=== PATIENT | female | born 1945 | race Caucasian/White ===

== ENCOUNTER 2017-12-31 12:55 | Emergency (ER) | payer MEDICARE, OTHER, SELFPAY ==
[2017-12-31 13:10] VITALS: BP 132/76; PULSE 69; RESP 16; TEMP 36.8; O2SAT 95
[2017-12-31 13:27] LABS: Bilirubin Negative (Negative); Blood Large (Negative); Clarity Cloudy; Glucose Negative (Negative); Ketones Negative (Negative); Leukocyte Esterase Trace (Negative); Nitrite Negative (Negative); Specific Gravity 1.025 (1.005-1.025); Urobilinogen 0.2 EU/dL (Up TO 0.2); pH 5.5 (5-8)
[2017-12-31 13:36] LABS: C & S Indicated? Yes; RBC >50 (0-2)
--- NOTE | 2017-12-31 14:16 | W.ED.GENAD ---
Discharge Plan Disposition Patient Disposition: HOME Condition: Fair Discharge Details Chief Complaint: Urinary Clinical Impression: UTI (urinary tract infection) Reason For Visit: blood in urine Primary Care Provider: Yusra Adhikari ED Provider: Shell Bran Home Meds and New Rx's Prescriptions: New cephalexin [Keflex] 500 mg capsule 500 mg PO BID Qty: 10 RF: 0 Continue omeprazole 40 MG capsule,delayed release(DR/EC) 40 mg PO DAILY Qty: 90 RF: 3 cholecalciferol (vitamin D3) 2,000 UNIT tablet 2,000 unit PO BID RF: 0 ranitidine HCl 300 MG tablet 300 mg PO HS PRN Qty: 90 RF: 3 acetaminophen [Acetaminophen Extra Strength] 500 MG tablet 500 mg PO PRN PRNRF: 0 Discharge Instructions Instructions: Urinary Tract Infection in Women (ED) Additional Instructions: Please encourage hydration. Take antibiotics as prescribed. Even if symptoms improve please take the entire course. Please follow-up with primary care this week for reevaluation. If you develop flank pain, abdominal pain, nausea/vomiting, change in bowel habits, fever/chills or other new/worsening symptoms please seek care urgently once again. Referrals: Yusra Adhikari MD [Primary Care Provider] - Discharge Data Discharge Date/Time-TO BE ENTERED AT DEPARTURE: 12/31/17 17:01 Medical Decision Making MDM Narrative Medical decision making narrative: Patient presents today with chief complaint hematuria, dysuria and increased frequency. She reports that when she has had a UTI in the past she has had associated hematuria. She has no CVA tenderness. No abdominal pain on exam. Patient appears nontoxic is afebrile. Reviewed findings of urinalysis which does suggest urinary tract infections particularly in the settings of the patient's symptoms. Patient will be treated for urinary tract infection. Advised close follow-up with primary care. Encourage hydration. Patient reports that she does not drink much water throughout the course of the day. She was given strict return precautions. All of her questions and concerns were addressed and she is in agreement with this plan. Lab Data Lab Results 12/31/17 Range/Units 13:24 Urine Color Brown (Yellow) Urine Clarity Cloudy Urine pH 5.5 (5-8) Ur Specific [place] 1.025 (1.005-1.025) Urine Protein 100 H (Negative) mg/dL Urine Ketones Negative (Negative) mg/dL Urine Blood Large H (Negative) Urine Nitrite Negative (Negative) Urine Bilirubin Negative (Negative) Urine Urobilinogen 0.2 (Up TO 0.2) EU/dL Ur Leukocyte Esterase Trace H (Negative) Urine RBC >50 H (0-2) Urine WBC Not Applicable Ur Epithelial Cells Not Applicable Urine Crystals Not Applicable Urine Bacteria Not Applicable Urine Mucus Not Applicable Ur Culture Indicated? Yes Urine Glucose Negative (Negative) mg/dL HPI - General Adult General Mode of arrival: ambulatory. Date/Time Provider Initiated Documentation: 12/31/17 14:01. Limitations to Documentation: no limitations. Information obtained by: patient and family. HPI Narrative: Patient is a 72-year-old female, accompanied by her , chief complaint of hematuria, dysuria and increased frequency. Patient reports his symptoms began this morning. She reports she has had urinary tract infections historically that has been several years since her last. She denies any fevers or chills. No flank pain. Patient has history of common bile duct cancer. Had partial resection of liver. Patient did undergo a repair 2 months ago at [facility]. Is concerned that her hematuria and recent surgery may be linked. She denies any abdominal pain. No fevers or chills. Denies any flank pain. Denies any abdominal pain. Has not noted any vaginal discharge. No change in bowel habits Related Data Home Medications Medication Instructions Recorded Confirmed acetaminophen [Acetaminophen Extra 500 mg PO PRN PRN 04/18/16 02/22/17 Strength] cholecalciferol (vitamin D3) 2,000 unit PO BID 06/08/17 Previous Rx's Medication Instructions Recorded cephalexin [Keflex] 500 mg PO BID #10 cap 12/31/17 Allergies Allergy/AdvReac Type Severity Reaction Status Date / Time No Known Allergies Allergy Unverified 09/05/17 11:08 General Stated Complaint: Urinary FALLON: 4 Review of Systems Constitutional Reports as per HPI, Denies chills and Denies fever(s) Cardiovascular Denies chest pain, Denies dyspnea and Denies dyspnea on exertion Respiratory Denies cough, Denies dyspnea and Denies dyspnea on exertion Gastrointestinal Reports as per HPI and Denies change in bowel habits Genitourinary Reports as per HPI Musculoskeletal Denies back pain Integumentary/Breasts Denies rash [facility] Family History Mother Personal history of malignant neoplasm Father Diabetes Heart disease Sister Personal history of malignant neoplasm Sister Personal history of malignant neoplasm Sister No problems noted. Sister No problems noted. Sister No problems noted. Brother Diabetes Heart disease Brother No problems noted. Brother No problems noted. Grandfather Personal history of malignant neoplasm Grandfather No problems noted. Grandmother No problems noted. Grandmother Personal history of malignant neoplasm Son No problems noted. Son No problems noted. Social History Smoking/Tobacco Use Status: Never Surgical History Abdominal hysterectomy Open Carpal Tunnel release Repair of inguinal hernia (02/22/17) Replacement of total knee joint VEIN STRIPPING liver resection (05/06/16) Exam Const General: cooperative, healthy appearing, comfortable and no acute distress Nutritional Appearance: average body habitus Orientation: alert Resp Effort & Inspection: normal respiratory effort, able to speak in complete sentences and no respiratory distress Auscultation: clear to auscultation bilaterally Cardio Rate: regular rate Rhythm: regular rhythm Heart Sounds: S1 normal and S2 normal GI Inspection: normal to inspection, no abdominal wall ecchymosis and non-distended Palpation: soft, no hepatosplenomegaly, not firm, no guarding, not rigid and nontender Auscultation: normal bowel sounds Back/Spine/Pelvis Back: no CVA tenderness Skin General skin exam: no rashes or lesions noted Neuro General: alert and awake Cognition: normal cognition Speech: speech normal Gait: normal gait Psych Appearance: grossly normal Mental Status: mental status grossly normal Speech and Movement: speech and movement normal Mood: congruent mood Affect: normal affect Attitude: cooperative Course Vital Signs Temperature 36.8 C 12/31/17 13:10 Pulse 69 12/31/17 13:10 Respiratory Rate 16 12/31/17 13:10 Blood Pressure 132/76 12/31/17 13:10 Pulse Oximetry 95 12/31/17 13:10 Temperature 36.8 C 12/31/17 13:10 Pulse 69 12/31/17 13:10 Respiratory Rate 16 12/31/17 13:10 Blood Pressure 132/76 12/31/17 13:10 Pulse Oximetry 95 12/31/17 13:10 Lab/Test Results Lab/Test Results: Laboratory Tests 12/31/17 13:24 Urine Color Brown Urine Clarity Cloudy Urine pH 5.5 Ur Specific [place] 1.025 Urine Protein 100 H Urine Ketones Negative Urine Blood Large H Urine Nitrite Negative Urine Bilirubin Negative Urine Urobilinogen 0.2 Ur Leukocyte Esterase Trace H Urine RBC >50 H Urine WBC Not Applicable Ur Epithelial Cells Not Applicable Urine Crystals Not Applicable Urine Bacteria Not Applicable Urine Mucus Not Applicable Ur Culture Indicated? Yes Urine Glucose Negative
--- NOTE | 2017-12-31 14:19 | ED.GENADUL_ITS ---
Discharge Plan Disposition Patient Disposition: HOME Condition: Fair Discharge Details Chief Complaint: Urinary Clinical Impression: UTI (urinary tract infection) Reason For Visit: blood in urine Primary Care Provider: Yusra Adhikari ED Provider: Shell Bran Home Meds and New Rx's Prescriptions: New cephalexin [Keflex] 500 mg capsule 500 mg PO BID Qty: 10 RF: 0 Continue omeprazole 40 MG capsule,delayed release(DR/EC) 40 mg PO DAILY Qty: 90 RF: 3 cholecalciferol (vitamin D3) 2,000 UNIT tablet 2,000 unit PO BID RF: 0 ranitidine HCl 300 MG tablet 300 mg PO HS PRN Qty: 90 RF: 3 acetaminophen [Acetaminophen Extra Strength] 500 MG tablet 500 mg PO PRN PRNRF: 0 Discharge Instructions Instructions: Urinary Tract Infection in Women (ED) Additional Instructions: Please encourage hydration. Take antibiotics as prescribed. Even if symptoms improve please take the entire course. Please follow-up with primary care this week for reevaluation. If you develop flank pain, abdominal pain, nausea/ vomiting, change in bowel habits, fever/chills or other new/worsening symptoms please seek care urgently once again. Referrals: Yusra Adhikari MD [Primary Care Provider] - Discharge Data Discharge Date/Time-TO BE ENTERED AT DEPARTURE: 12/31/17 17:01 Medical Decision Making MDM Narrative Medical decision making narrative: Patient presents today with chief complaint hematuria, dysuria and increased frequency. She reports that when she has had a UTI in the past she has had associated hematuria. She has no CVA tenderness. No abdominal pain on exam. Patient appears nontoxic is afebrile. Reviewed findings of urinalysis which does suggest urinary tract infections particularly in the settings of the patient's symptoms. Patient will be treated for urinary tract infection. Advised close follow-up with primary care. Encourage hydration. Patient reports that she does not drink much water throughout the course of the day. She was given strict return precautions. All of her questions and concerns were addressed and she is in agreement with this plan. Lab Data Lab Results 12/31/17 Range/Units 13:24 Urine Color Brown (Yellow) Urine Clarity Cloudy Urine pH 5.5 (5-8) Ur Specific [place] 1.025 (1.005-1.025) Urine Protein 100 H (Negative) mg/dL Urine Ketones Negative (Negative) mg/dL Urine Blood Large H (Negative) Urine Nitrite Negative (Negative) Urine Bilirubin Negative (Negative) Urine Urobilinogen 0.2 (Up TO 0.2) EU/dL Ur Leukocyte Esterase Trace H (Negative) Urine RBC >50 H (0-2) Urine WBC Not Applicable Ur Epithelial Cells Not Applicable Urine Crystals Not Applicable Urine Bacteria Not Applicable Urine Mucus Not Applicable Ur Culture Indicated? Yes Urine Glucose Negative (Negative) mg/dL HPI - General Adult General Mode of arrival: ambulatory . Date/Time Provider Initiated Documentation: 12/31/17 14:01 . Limitations to Documentation: no limitations . Information obtained by: patient and family . HPI Narrative: Patient is a 72-year-old female, accompanied by her , chief complaint of hematuria, dysuria and increased frequency. Patient reports his symptoms began this morning. She reports she has had urinary tract infections historically that has been several years since her last. She denies any fevers or chills. No flank pain. Patient has history of common bile duct cancer. Had partial resection of liver. Patient did undergo a repair 2 months ago at [facility]. Is concerned that her hematuria and recent surgery may be linked. She denies any abdominal pain. No fevers or chills. Denies any flank pain. Denies any abdominal pain. Has not noted any vaginal discharge. No change in bowel habits Related Data Home Medications Medication Instructions Recorded Confirmed acetaminophen [Acetaminophen Extra 500 mg PO PRN PRN 04/18/16 02/22/17 Strength] cholecalciferol (vitamin D3) 2,000 unit PO BID 06/08/17 Previous Rx's Medication Instructions Recorded cephalexin [Keflex] 500 mg PO BID #10 cap 12/31/17 Allergies Allergy/AdvReac Type Severity Reaction Status Date / Time No Known Allergies Allergy Unverified 09/05/17 11:08 General Stated Complaint: Urinary [place]ALL[place]: 4 Review of Systems Constitutional Reports as per HPI, Denies chills and Denies fever(s) Cardiovascular Denies chest pain, Denies dyspnea and Denies dyspnea on exertion Respiratory Denies cough, Denies dyspnea and Denies dyspnea on exertion Gastrointestinal Reports as per HPI and Denies change in bowel habits Genitourinary Reports as per HPI Musculoskeletal Denies back pain Integumentary/Breasts Denies rash [facility] Family History Mother Personal history of malignant neoplasm Father Diabetes Heart disease Sister Personal history of malignant neoplasm Sister Personal history of malignant neoplasm Sister No problems noted. Sister No problems noted. Sister No problems noted. Brother Diabetes Heart disease Brother No problems noted. Brother No problems noted. Grandfather Personal history of malignant neoplasm Grandfather No problems noted. Grandmother No problems noted. Grandmother Personal history of malignant neoplasm Son No problems noted. Son No problems noted. Social History Smoking/Tobacco Use Status: Never Surgical History Abdominal hysterectomy Open Carpal Tunnel release Repair of inguinal hernia (02/22/17) Replacement of total knee joint VEIN STRIPPING liver resection (05/06/16) Exam Const General: cooperative, healthy appearing, comfortable and no acute distress Nutritional Appearance: average body habitus Orientation: alert Resp Effort & Inspection: normal respiratory effort, able to speak in complete sentences and no respiratory distress Auscultation: clear to auscultation bilaterally Cardio Rate: regular rate Rhythm: regular rhythm Heart Sounds: S1 normal and S2 normal GI Inspection: normal to inspection, no abdominal wall ecchymosis and non-distended Palpation: soft, no hepatosplenomegaly, not firm, no guarding, not rigid and nontender Auscultation: normal bowel sounds Back/Spine/Pelvis Back: no CVA tenderness Skin General skin exam: no rashes or lesions noted Neuro General: alert and awake Cognition: normal cognition Speech: speech normal Gait: normal gait Psych Appearance: grossly normal Mental Status: mental status grossly normal Speech and Movement: speech and movement normal Mood: congruent mood Affect: normal affect Attitude: cooperative Course Vital Signs Temperature 36.8 C 12/31/17 13:10 Pulse 69 12/31/17 13:10 Respiratory Rate 16 12/31/17 13:10 Blood Pressure 132/76 12/31/17 13:10 Pulse Oximetry 95 12/31/17 13:10 Temperature 36.8 C 12/31/17 13:10 Pulse 69 12/31/17 13:10 Respiratory Rate 16 12/31/17 13:10 Blood Pressure 132/76 12/31/17 13:10 Pulse Oximetry 95 12/31/17 13:10 Lab/Test Results Lab/Test Results: Laboratory Tests 12/31/17 13:24 Urine Color Brown Urine Clarity Cloudy Urine pH 5.5 Ur Specific [place] 1.025 Urine Protein 100 H Urine Ketones Negative Urine Blood Large H Urine Nitrite Negative Urine Bilirubin Negative Urine Urobilinogen 0.2 Ur Leukocyte Esterase Trace H Urine RBC >50 H Urine WBC Not Applicable Ur Epithelial Cells Not Applicable Urine Crystals Not Applicable Urine Bacteria Not Applicable Urine Mucus Not Applicable Ur Culture Indicated? Yes Urine Glucose Negative
== END 2017-12-31 17:01 | disposition home or self-care (01) ==
PROVIDERS: Emergency Provider Physician Assistant; PCP Family Medicine
DX: N39.0 Urinary tract infection, site not specified (principal); B96.20 Unspecified Escherichia coli [E. coli] as the cause of diseases classified elsewhere
CPT/HCPCS: 87077; 99283; 81003; 81015; 87086; 87186

== ENCOUNTER → 2018-01-02 14:14 | Outpatient (BNVA) | payer MEDICARE, OTHER, SELFPAY | PROVIDERS: PCP Family Medicine; Visit Provider Orthopaedic Surgery | DX: M17.11 Unilateral primary osteoarthritis, right knee (principal); M17.12 Unilateral primary osteoarthritis, left knee | CPT/HCPCS: 20610; 99213; J1040 ==

== ENCOUNTER 2018-01-09 00:21 | Outpatient (CLI) | payer MEDICARE, OTHER, SELFPAY ==
[2018-01-09 09:33] LABS: Abs Immature Grans 0.08 k/cumm (0.0-0.09); Absolute Eosinophil Count 0.11 k/cumm (0.0-0.7); Absolute Monocyte Count 1.42 k/cumm (0.11-0.7); Absolute Neutrophil Count 12.66 k/cumm (1.2-6.7); Basophils % 0.2; Eosinophils % 0.7; HCT 41.7 % (36.0-46.0); HGB 13.7 g/dL (12.0-15.5); Immature Grans % 0.5; Lymphocytes % 12.2; Mean Corp. HGB Concentration 32.9 g/dL (32.0-36.0); Mean Corpuscular Hemoglobin 27.2 pg (27.0-33.0); Mean Corpuscular Volume 82.9 fL (80-95); Mean Platelet Volume 11.3 fL (8.0-11.0); Monocytes % 8.7; Neutrophils % 77.7; Platelet Count 257 x1000/uL (130-400); RBC 5.03 m/cumm (4.00-5.20); RBC Distribution Width 14.9 % (11.7-14.6); White Blood Cell Count 16.29 k/cumm (4.4-10.8)
[2018-01-09 09:34] LABS: Absolute Basophil Count 0.03 k/cumm (0.0-0.2); Absolute Lymphocyte Count 1.99 k/cumm (1.2-3.4)
[2018-01-09] MEDS: Breeza Beverage 473 ML BTL PO ×2 (09:34→09:35)
[2018-01-09] MEDS: Omnipaque 350 MG/ML 50 ML BTL PO (09:35)
[2018-01-09 09:48] LABS: ALT 22 U/L (12-78); AST 24 U/L (15-37); Albumin 3.6 g/dL (3.4-5.0); Alkaline Phosphatase 86 U/L (46-116); Anion Gap 7.4 mmol/L (3-11); BUN 13 mg/dL (7-18); Bilirubin, Total 0.4 mg/dL (0.2-1.0); CO2 29.6 mmol/L (21.0-32.0); CREATININE 0.63 mg/dL (0.55-1.02); Calcium 8.6 mg/dL (8.5-10.1); Chloride 103 mmol/L (98-107); Glucose 89 mg/dL (70-100); Potassium 4.4 mmol/L (3.5-5.1); Sodium 140 mmol/L (136-145); Total Protein 7.9 g/dL (6.4-8.2)
--- NOTE | 2018-01-09 10:52 | DI.CT_ITS ---
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 Routine examination was performed. CT ABDOMEN AND PELVIS: There is a large hiatal hernia. There are again seen several hepatic cysts. No suspicious hepatic masses are seen. The portal and superior mesenteric veins are patent. There are postsurgical changes in the right upper quadrant. The patient is status post cholecystectomy. No biliary ductal dilatation is present. The pancreas, spleen and adrenal glands are unremarkable. The kidneys show normal and symmetric enhancement. No suspicious sold renal masses are present. Hepatic cysts are seen. The urinary bladder is intact. The patient appears to be status post hysterectomy. There is diverticulosis of the colon but no evidence of acute diverticulitis. There is a moderate amount of retained stool throughout the colon. No evidence of bowel obstruction is seen. No findings to suggest an acute appendicitis. The abdominal aorta is of normal caliber with mild atherosclerosis. No abdominal or pelvic adenopathy or ascites is present. The mass seen in the left inguinal region is unchanged in size. The mass deep to the left rectus abdominis muscle is unchanged in size compared to the prior examination also. Degenerative changes are seen in the lumbar spine. No suspicious lytic or sclerotic lesions are appreciated. There appears to have been repair of the patient's prior anterior abdominal wall hernia. IMPRESSION: 1. Stable soft tissue masses, one in the left inguinal region and one deep to the left rectus abdominis muscle. 2. Status post anterior abdominal wall hernia repair. 3. Otherwise stable appearance of the abdomen and pelvis. CT SCAN OF THE CHEST: The thoracic aorta is of normal caliber. The heart size is stable. No significant pericardial effusion is seen. No significant thoracic adenopathy is present. There are several masses again seen in the thyroid gland, the largest is seen on the left and measures 2.1 cm in maximum diameter. No pleural effusion or pneumothorax is identified. There is scarring in both upper lobes medially. No noncalcified pulmonary nodules are identified. No consolidating infiltrates are seen. The tracheobronchial tree is unremarkable. Degenerative changes are present in the spine. There is a large hiatal hernia present. IMPRESSION: No evidence of thoracic metastatic disease.
[2018-01-09] MEDS: Omnipaque 350 MG/ML 100 ML BTL IJ (10:54)
[2018-01-11 10:10] LABS: CA 19-9 10 U/mL (<35)
== END 2018-01-09 00:41 ==
PROVIDERS: PCP Family Medicine; Visit Provider Nurse Practitioner Adult Health
DX: C22.1 Intrahepatic bile duct carcinoma (principal); K44.9 Diaphragmatic hernia without obstruction or gangrene; Z12.89 Encounter for screening for malignant neoplasm of other sites; Z90.49 Acquired absence of other specified parts of digestive tract; Z98.890 Other specified postprocedural states
CPT/HCPCS: 36415; 74177; 80053; 71260; 85025; 86301; J3490; Q9967

== ENCOUNTER 2018-01-10 08:50 | Outpatient (CLI) | payer MEDICARE, OTHER, SELFPAY ==
[2018-01-10 12:53] LABS: Bilirubin Negative (Negative); Blood Moderate (Negative); Clarity Clear; Glucose Negative (Negative); Ketones Negative (Negative); Leukocyte Esterase Small (Negative); Nitrite Negative (Negative); Specific Gravity <= 1.005 (1.005-1.025); Urobilinogen 0.2 EU/dL (Up TO 0.2); pH 6.5 (5-8)
[2018-01-10 13:09] LABS: Bacteria Few HPF (Negative); Casts Negative LPF (Negative); Crystals Negative HPF (Negative); Epithelial Cells Few HPF (Negative); Mucus Negative (Negative); Other Cells Few Renal (Negative); RBC 0-2 (0-2); WBC 20-50 HPF (0-5)
[2018-01-10 13:10] LABS: C & S Indicated? Yes
== END 2018-01-10 09:10 ==
PROVIDERS: PCP Family Medicine; Visit Provider Family Medicine
DX: R31.9 Hematuria, unspecified (principal)
CPT/HCPCS: 81003; 81015; 87086

== ENCOUNTER 2018-01-23 10:12 | Outpatient (CLI) | payer MEDICARE, OTHER, SELFPAY ==
[2018-01-23 11:40] LABS: Bilirubin Negative (Negative); Blood Negative (Negative); Clarity Clear; Glucose Negative (Negative); Ketones Negative (Negative); Leukocyte Esterase Negative (Negative); Nitrite Negative (Negative); Urobilinogen 0.2 EU/dL (Up TO 0.2)
== END 2018-01-23 10:32 ==
PROVIDERS: PCP Family Medicine; Visit Provider Family Medicine
DX: R31.9 Hematuria, unspecified (principal)
CPT/HCPCS: 81003

== ENCOUNTER 2018-02-02 14:06 | Outpatient (CLI) | payer MEDICARE, OTHER, SELFPAY ==
[2018-02-02 14:24] LABS: Bilirubin Negative (Negative); Blood Negative (Negative); Clarity Clear; Glucose Negative (Negative); Ketones Negative (Negative); Leukocyte Esterase Negative (Negative); Nitrite Negative (Negative); Specific Gravity 1.015 (1.005-1.025); Urobilinogen 0.2 EU/dL (Up TO 0.2); pH 6.5 (5-8)
== END 2018-02-02 14:26 ==
PROVIDERS: PCP Family Medicine; Visit Provider Family Medicine
DX: R31.9 Hematuria, unspecified (principal)
CPT/HCPCS: 81003

== ENCOUNTER → 2018-04-03 12:50 | Outpatient (BNVA) | payer MEDICARE, OTHER, SELFPAY | PROVIDERS: PCP Family Medicine; Referring Provider Family Medicine; Visit Provider Orthopaedic Surgery | DX: M17.0 Bilateral primary osteoarthritis of knee (principal) | CPT/HCPCS: 20610; 99211; 99213; J1040 ==

== ENCOUNTER → 2018-04-10 13:40 | Outpatient (BNVA) | payer MEDICARE, OTHER, SELFPAY | PROVIDERS: PCP Family Medicine; Visit Provider Nurse Practitioner Gerontology | DX: N30.01 Acute cystitis with hematuria (principal) | CPT/HCPCS: 81003; 99204; 99215 ==

== ENCOUNTER 2018-04-20 09:42 | Outpatient (CLI) | payer MEDICARE, OTHER, SELFPAY ==
[2018-04-20 12:24] LABS: Abs Immature Grans 0.04 k/cumm (0.0-0.09); Absolute Basophil Count 0.05 k/cumm (0.0-0.2); Absolute Eosinophil Count 0.19 k/cumm (0.0-0.7); Absolute Lymphocyte Count 1.71 k/cumm (1.2-3.4); Absolute Monocyte Count 1.17 k/cumm (0.11-0.7); Absolute Neutrophil Count 8.11 k/cumm (1.2-6.7); Basophils % 0.4; Eosinophils % 1.7; HCT 41.5 % (36.0-46.0); HGB 13.7 g/dL (12.0-15.5); Immature Grans % 0.4; Lymphocytes % 15.2; Mean Corpuscular Hemoglobin 27.2 pg (27.0-33.0); Mean Corpuscular Volume 82.5 fL (80-95); Mean Platelet Volume 11.4 fL (8.0-11.0); Monocytes % 10.4; Neutrophils % 71.9; Platelet Count 242 x1000/uL (130-400); RBC 5.03 m/cumm (4.00-5.20); RBC Distribution Width 14.9 % (11.7-14.6); White Blood Cell Count 11.28 k/cumm (4.4-10.8)
[2018-04-20 12:36] LABS: ALT 23 U/L (12-78); AST 19 U/L (15-37); Albumin 3.7 g/dL (3.4-5.0); Alkaline Phosphatase 77 U/L (46-116); BUN 16 mg/dL (7-18); Bilirubin, Total 0.5 mg/dL (0.2-1.0); CREATININE 0.56 mg/dL (0.55-1.02); Chloride 103 mmol/L (98-107); Glucose 98 mg/dL (70-100); Potassium 3.8 mmol/L (3.5-5.1); Sodium 139 mmol/L (136-145); Total Protein 7.6 g/dL (6.4-8.2)
[2018-04-20 12:47] LABS: Calcium 9.4 mg/dL (8.5-10.1)
[2018-04-21 10:59] LABS: CA 19-9 9 U/mL (<35)
== END 2018-04-20 10:02 ==
PROVIDERS: PCP Family Medicine; Visit Provider Nurse Practitioner Family
DX: C22.1 Intrahepatic bile duct carcinoma (principal)
CPT/HCPCS: 36415; 80053; 85025; 86301

== ENCOUNTER → 2018-07-03 10:58 | Outpatient (BNVA) | payer MEDICARE, OTHER, SELFPAY | PROVIDERS: PCP Family Medicine; Referring Provider Family Medicine; Visit Provider Orthopaedic Surgery | DX: M17.11 Unilateral primary osteoarthritis, right knee (principal); M17.12 Unilateral primary osteoarthritis, left knee | CPT/HCPCS: 20610; 99211; 99213; J1040 ==

== ENCOUNTER 2018-07-17 00:39 | Outpatient (CLI) | payer MEDICARE, OTHER, SELFPAY ==
[2018-07-17 10:38] LABS: Abs Immature Grans 0.02 k/cumm (0.0-0.09); Absolute Basophil Count 0.05 k/cumm (0.0-0.2); Absolute Eosinophil Count 0.23 k/cumm (0.0-0.7); Absolute Lymphocyte Count 1.77 k/cumm (1.2-3.4); Absolute Monocyte Count 0.78 k/cumm (0.11-0.7); Absolute Neutrophil Count 7.28 k/cumm (1.2-6.7); Basophils % 0.5; Eosinophils % 2.3; HCT 38.6 % (36.0-46.0); HGB 12.3 g/dL (12.0-15.5); Immature Grans % 0.2; Lymphocytes % 17.5; Mean Corp. HGB Concentration 31.9 g/dL (32.0-36.0); Mean Corpuscular Hemoglobin 25.7 pg (27.0-33.0); Mean Corpuscular Volume 80.8 fL (80-95); Mean Platelet Volume 11.7 fL (8.0-11.0); Monocytes % 7.7; Neutrophils % 71.8; Platelet Count 257 x1000/uL (130-400); RBC 4.78 m/cumm (4.00-5.20); White Blood Cell Count 10.13 k/cumm (4.4-10.8)
[2018-07-17 10:44] LABS: ALT 21 U/L (12-78); AST 24 U/L (15-37); Albumin 3.5 g/dL (3.4-5.0); Alkaline Phosphatase 75 U/L (46-116); Anion Gap 6.9 mmol/L (3-11); BUN 11 mg/dL (7-18); Bilirubin, Total 0.4 mg/dL (0.2-1.0); CO2 30.1 mmol/L (21.0-32.0); CREATININE 0.63 mg/dL (0.55-1.02); Calcium 8.8 mg/dL (8.5-10.1); Chloride 104 mmol/L (98-107); Glucose 86 mg/dL (70-100); Potassium 5.1 mmol/L (3.5-5.1); Sodium 141 mmol/L (136-145); Total Protein 7.3 g/dL (6.4-8.2)
[2018-07-17] MEDS: Omnipaque 350 MG/ML 100 ML BTL IV (13:08)
--- NOTE | 2018-07-17 13:44 | DI.CT_ITS ---
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 CHEST CT: The pulmonary arteries and aorta are well opacified with IV contrast and no pulmonary emboli or aortic dissection are seen. 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 There has been no change in a large hiatal hernia. There was no adenopathy, infiltrates, pleural or pericardial effusions. There is minimal linear scarring in the anterior right upper lobe. The thyroid nodules appear stable. IMPRESSION: No evidence of metastatic disease in the chest. ABDOMINAL AND PELVIC CT: The patient is again noted to be status post resection of the left lobe of the liver, as well as gallbladder. Multiple surgical clips are noted at the anterior border of the liver. A minimal amount of postsurgical biliary air is again noted. There are stable low density liver lesions, presumably cysts. The spleen, pancreas and adrenals are unremarkable. A few small renal cysts are again noted. There has been no change in a density seen just deep to the left rectus abdominis muscle at the level of the iliac crest, as well as an area of increased density in the left inguinal canal. This could be secondary to inguinal hernia repair. Severe diverticulosis is again noted. No adenopathy, free air or free fluid is seen. A cystocele is seen. This appears to have slightly worsened when compared with the previous exam. No suspicious bony lesions are identified. Several hemangiomas are noted in the thoracic and lumbar spine. Degenerative changes are again noted, greatest in the lower lumbar spine. IMPRESSION: Stable appearance of the abdomen and pelvis.
[2018-07-19 12:04] LABS: CA 19-9 13 U/mL (<35)
== END 2018-07-17 00:59 ==
PROVIDERS: PCP Family Medicine; Visit Provider Nurse Practitioner Adult Health
DX: C22.1 Intrahepatic bile duct carcinoma (principal); Z12.89 Encounter for screening for malignant neoplasm of other sites; K57.30 Diverticulosis of large intestine without perforation or abscess without bleeding; K44.9 Diaphragmatic hernia without obstruction or gangrene; Z90.49 Acquired absence of other specified parts of digestive tract
CPT/HCPCS: 36415; 74177; 80053; 71260; 85025; 86301; J3490

== ENCOUNTER → 2018-10-03 09:48 | Outpatient (BNVA) | payer MEDICARE, OTHER, SELFPAY | PROVIDERS: PCP Family Medicine; Referring Provider Family Medicine; Visit Provider Orthopaedic Surgery | DX: M17.11 Unilateral primary osteoarthritis, right knee (principal); M17.12 Unilateral primary osteoarthritis, left knee; C24.9 Malignant neoplasm of biliary tract, unspecified | CPT/HCPCS: 20610; 99211; 99213; J1040 ==

== ENCOUNTER 2018-10-30 00:15 | Outpatient (CLI) | payer MEDICARE, OTHER, SELFPAY ==
--- NOTE | 2018-10-30 11:30 | DI.MAMMO_ITS ---
SYMPTOM/DIAGNOSIS: SCREENING, Z12.31 MAMMOGRAMS: Mammograms were interpreted according to the usual protocol including computer analysis with CAD system, tomosynthesis and C view imaging. The breasts are of moderate density with fairly symmetrical distribution of fibroglandular tissue. No dominant mass or clumped microcalcification is identified in either breast. Current examination is compared with previous examinations including 08/2017 and there has been no gross interval change in appearance in comparison with the previous studies. CONCLUSION: No specific evidence of malignancy at this time. Routine screening examinations are suggested at yearly intervals due to the family history of breast carcinoma. Category 1. Breast density, Category B. MQSA ASSESSMENT OF FINDINGS: Negative. Category 1. Patient will receive a letter notifying them of these results. BI-RADS category B. There are scattered areas of fibroglandular density.
== END 2018-10-30 00:35 ==
PROVIDERS: PCP Family Medicine; Visit Provider Family Medicine
DX: Z12.31 Encounter for screening mammogram for malignant neoplasm of breast (principal); Z80.3 Family history of malignant neoplasm of breast
CPT/HCPCS: 77063; 77067

== ENCOUNTER 2018-10-30 10:40 | Outpatient (CLI) | payer MEDICARE, OTHER, SELFPAY ==
[2018-10-30 11:37] LABS: Abs Immature Grans 0.01 k/cumm (0.0-0.09); Absolute Basophil Count 0.06 k/cumm (0.0-0.2); Absolute Eosinophil Count 0.31 k/cumm (0.0-0.7); Absolute Monocyte Count 0.76 k/cumm (0.11-0.7); Absolute Neutrophil Count 5.12 k/cumm (1.2-6.7); Basophils % 0.8; HCT 35.5 % (36.0-46.0); HGB 11.1 g/dL (12.0-15.5); Immature Grans % 0.1; Lymphocytes % 19.3; Mean Corp. HGB Concentration 31.3 g/dL (32.0-36.0); Mean Corpuscular Hemoglobin 24.8 pg (27.0-33.0); Mean Corpuscular Volume 79.2 fL (80-95); Mean Platelet Volume 12.1 fL (8.0-11.0); Monocytes % 9.8; Platelet Count 248 x1000/uL (130-400); RBC 4.48 m/cumm (4.00-5.20); RBC Distribution Width 16.3 % (11.7-14.6); White Blood Cell Count 7.76 k/cumm (4.4-10.8)
[2018-10-30 11:41] LABS: ALT 21 U/L (12-78); AST 20 U/L (15-37); Albumin 3.5 g/dL (3.4-5.0); Alkaline Phosphatase 76 U/L (46-116); Anion Gap 8.1 mmol/L (3-11); BUN 12 mg/dL (7-18); Bilirubin, Total 0.4 mg/dL (0.2-1.0); CO2 26.9 mmol/L (21.0-32.0); CREATININE 0.65 mg/dL (0.55-1.02); Calcium 8.6 mg/dL (8.5-10.1); Chloride 106 mmol/L (98-107); Glucose 85 mg/dL (70-100); Potassium 4.1 mmol/L (3.5-5.1); Sodium 141 mmol/L (136-145); Total Protein 6.9 g/dL (6.4-8.2)
[2018-11-01 09:44] LABS: CA 19-9 10 U/mL (<35)
== END 2018-10-30 11:00 ==
PROVIDERS: PCP Family Medicine; Visit Provider Internal Medicine Hematology & Oncology
DX: C22.1 Intrahepatic bile duct carcinoma (principal)
CPT/HCPCS: 36415; 80053; 85025; 86301

== ENCOUNTER 2019-01-19 01:21 | Outpatient (CLI) | payer MEDICARE, OTHER, SELFPAY ==
[2019-01-19] MEDS: Omnipaque 350 MG/ML 50 ML BTL IJ (09:25)
[2019-01-19] MEDS: Breeza Beverage 473 ML BTL PO (09:26)
[2019-01-19 09:46] LABS: Abs Immature Grans 0.01 k/cumm (0.0-0.09); Absolute Basophil Count 0.06 k/cumm (0.0-0.2); Absolute Eosinophil Count 0.23 k/cumm (0.0-0.7); Absolute Lymphocyte Count 1.41 k/cumm (1.2-3.4); Absolute Monocyte Count 0.57 k/cumm (0.11-0.7); Absolute Neutrophil Count 5.09 k/cumm (1.2-6.7); Basophils % 0.8; Eosinophils % 3.1; HCT 34.7 % (36.0-46.0); HGB 10.7 g/dL (12.0-15.5); Immature Grans % 0.1; Lymphocytes % 19.1; Mean Corp. HGB Concentration 30.8 g/dL (32.0-36.0); Mean Corpuscular Hemoglobin 22.8 pg (27.0-33.0); Mean Corpuscular Volume 73.8 fL (80-95); Mean Platelet Volume 11.3 fL (8.0-11.0); Monocytes % 7.7; Neutrophils % 69.2; Platelet Count 371 x1000/uL (130-400); RBC Distribution Width 15.9 % (11.7-14.6); White Blood Cell Count 7.37 k/cumm (4.4-10.8)
[2019-01-19 10:00] LABS: ALT 16 U/L (14-59); AST 16 U/L (15-37); Albumin 3.3 g/dL (3.4-5.0); Alkaline Phosphatase 72 U/L (46-116); Anion Gap 5.6 mmol/L (3-11); BUN 14 mg/dL (7-18); Bilirubin, Total 0.3 mg/dL (0.2-1.0); CO2 27.4 mmol/L (21.0-32.0); CREATININE 0.67 mg/dL (0.55-1.02); Calcium 8.3 mg/dL (8.5-10.1); Chloride 107 mmol/L (98-107); Glucose 92 mg/dL (70-100); Potassium 4.2 mmol/L (3.5-5.1); Sodium 140 mmol/L (136-145); Total Protein 7.1 g/dL (6.4-8.2)
[2019-01-19 10:15] LABS: Calculated LDL 116 mg/dL; Cholesterol 199 mg/dL (50-200); HDL Cholesterol 72 mg/dL (40-60); Triglyceride 59 mg/dL (30-150)
[2019-01-19 10:15] LABS: Hypochromasia 2+
[2019-01-19 10:16] LABS: Microcytosis 2+
[2019-01-19 10:19] LABS: Diff Comment RBC Morph Reviewed
[2019-01-19] MEDS: Omnipaque 350 MG/ML 100 ML BTL IJ (10:49)
--- NOTE | 2019-01-19 10:58 | DI.CT_ITS ---
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 TECHNIQUE: COMPARISON: CHEST FOR PULMONARY EMBOLUS from 04/18/2016 CT CHEST/ABD/PEL W from 07/17/2018 FINDINGS: CT examination chest pelvis was utilizing biphasic hepatic imaging with intravenous infusion of 100 c c of Omnipaque 350 ingestion dilute barium. Examination is compared most recent prior CT 07/17/2018. Patient is reportedly status post resection of intrahepatic cholangiocarcinoma. The lungs are pred ominantly clear but there is a new 4-5 millimeter in diameter left lower lobe intrapulmonary nodule w hich is nonspecific. No mediastinal or hilar adenopathy. No pleural effusion. Tracheobronchial hoda e appears intact. No evidence of pulmonary embolic disease. No thoracic aortic dissection or aneury sm. Well-circumscribed small hepatic lesions again noted and unchanged, findings consistent with cysts or small hemangiomas. Spleen is unremarkable in appearance. Multiple vascular clips again noted in po rtal region, no new mass or adenopathy. No intrahepatic biliary dilatation. Adrenals and kidneys un remarkable. No pelvic or retroperitoneal adenopathy. Abdominal aorta is of normal diameter and no m ajor vascular abnormality is seen. No focal bowel pathology identified. Appendix is normal. Apparent multiple vertebral hemangiomas noted in the lumbar region, no gross interval change from lito or exams. No gross new erosive or destructive bony lesion of thoracic or abdominal pelvic region. IMPRESSION: New 5 millimeter left lower lobe intrapulmonary nodule, metastatic disease not excluded. Stable appearance of abdominal and pelvic CT.
[2019-01-22 11:52] LABS: CA 19-9 6 U/mL (<35)
== END 2019-01-19 01:41 ==
PROVIDERS: PCP Family Medicine; Visit Provider Registered Nurse Oncology
DX: E78.5 Hyperlipidemia, unspecified (principal); C22.1 Intrahepatic bile duct carcinoma; R91.1 Solitary pulmonary nodule; K76.89 Other specified diseases of liver
CPT/HCPCS: 36415; 74177; 80053; 80061; 71260; 85025; 86301; J3490; Q9967

== ENCOUNTER 2019-01-26 15:19 | Outpatient (CLI) | payer MEDICARE, OTHER, SELFPAY ==
[2019-01-26 15:44] LABS: Abs Immature Grans 0.02 k/cumm (0.0-0.09); Absolute Basophil Count 0.07 k/cumm (0.0-0.2); Absolute Eosinophil Count 0.23 k/cumm (0.0-0.7); Absolute Lymphocyte Count 1.88 k/cumm (1.2-3.4); Absolute Monocyte Count 0.75 k/cumm (0.11-0.7); Absolute Neutrophil Count 6.13 k/cumm (1.2-6.7); Basophils % 0.8; Eosinophils % 2.5; HCT 35.8 % (36.0-46.0); Immature Grans % 0.2; Lymphocytes % 20.7; Mean Corp. HGB Concentration 30.7 g/dL (32.0-36.0); Mean Corpuscular Hemoglobin 22.4 pg (27.0-33.0); Mean Corpuscular Volume 72.8 fL (80-95); Mean Platelet Volume 10.7 fL (8.0-11.0); Monocytes % 8.3; Neutrophils % 67.5; Platelet Count 382 x1000/uL (130-400); RBC 4.92 m/cumm (4.00-5.20); RBC Distribution Width 16.4 % (11.7-14.6); White Blood Cell Count 9.08 k/cumm (4.4-10.8)
[2019-01-26 16:30] LABS: Anisocytosis 1+; Hypochromasia 2+; Microcytosis 2+; Polychromasia Present
[2019-01-26 17:12] LABS: Iron 24 ug/dL (50-175); Total Iron Binding Capacity 467 ug/dL (250-450); Transferrin Sat 5 % (15-50)
[2019-01-26 17:39] LABS: Ferritin 7 ng/mL (8-388); Folate 19.7 ng/mL (8.6-20.0); Vitamin B12 423 pg/mL (193-986)
== END 2019-01-26 15:39 ==
PROVIDERS: PCP Family Medicine; Visit Provider Internal Medicine Hematology & Oncology
DX: D50.9 Iron deficiency anemia, unspecified (principal)
CPT/HCPCS: 36415; 82607; 82728; 82746; 83540; 83550; 85025

== ENCOUNTER → 2019-02-05 13:49 | Outpatient (BNVA) | payer MEDICARE, OTHER, SELFPAY | PROVIDERS: PCP Family Medicine; Referring Provider Family Medicine; Visit Provider Student in an Organized Health Care Education/Training Program | DX: M17.0 Bilateral primary osteoarthritis of knee (principal) | CPT/HCPCS: 99214 ==

== ENCOUNTER 2019-03-21 01:36 | Outpatient (CLI) | payer MEDICARE, OTHER, SELFPAY ==
[2019-03-21 12:50] LABS: Abs Immature Grans 0.03 k/cumm (0.0-0.09); Absolute Basophil Count 0.06 k/cumm (0.0-0.2); Absolute Eosinophil Count 0.33 k/cumm (0.0-0.7); Absolute Lymphocyte Count 1.61 k/cumm (1.2-3.4); Absolute Monocyte Count 0.77 k/cumm (0.11-0.7); Absolute Neutrophil Count 5.89 k/cumm (1.2-6.7); Basophils % 0.7; Eosinophils % 3.8; HCT 44.2 % (36.0-46.0); HGB 14.1 g/dL (12.0-15.5); Immature Grans % 0.3; Lymphocytes % 18.5; Mean Corp. HGB Concentration 31.9 g/dL (32.0-36.0); Mean Corpuscular Hemoglobin 25.3 pg (27.0-33.0); Mean Corpuscular Volume 79.4 fL (80-95); Monocytes % 8.9; Neutrophils % 67.8; Platelet Count 297 x1000/uL (130-400); RBC 5.57 m/cumm (4.00-5.20); RBC Distribution Width 23.8 % (11.7-14.6); White Blood Cell Count 8.69 k/cumm (4.4-10.8)
--- NOTE | 2019-03-21 13:12 | DI.CT_ITS ---
EXAM: CT CHEST WO CLINICAL HISTORY: NEW SMALL LEFT LOWER LOBE LUNG NODULE ON 01/19/19 CT, H/O CHOLANGIOCARCINOMA TECHNIQUE: CT examination of the chest was performed without contrast administration. COMPARISON: CT CHEST ABDOMEN PELVI from 08/12/2016 CT CHEST/ABD/PEL W from 01/19/2019 FINDINGS: Prior CT of January 19, 2019 showed a 4-5 millimeter in diameter new left lower lobe intrapulmonary nodule peripherally. This is no longer visible on the current examination. Lungs are clear. Trach eobronchial tree appears intact. Thoracic aortic ectasia again noted at 4.3 cm. No mediastinal mass or adenopathy seen. No pleural effusion. No bony lesion identified. The patient reportedly has a history of cholangiocarcinoma and there is evidence of prior biliary/hep atic surgery with gas in bile ducts, no gross interval change in appearance from CT of 01/19. IMPRESSION: Interval resolution of previously noted left lower lobe intrapulmonary nodule. No current evidence of pulmonary metastatic disease.
[2019-03-21 14:00] LABS: ALT 20 U/L (14-59); AST 15 U/L (15-37); Albumin 3.8 g/dL (3.4-5.0); Alkaline Phosphatase 79 U/L (46-116); Anion Gap 6.7 mmol/L (3-11); BUN 13 mg/dL (7-18); Bilirubin, Total 0.1 mg/dL (0.2-1.0); CO2 30.3 mmol/L (21.0-32.0); CREATININE 0.72 mg/dL (0.55-1.02); Calcium 9.2 mg/dL (8.5-10.1); Chloride 105 mmol/L (98-107); Glucose 89 mg/dL (74-106); Sodium 142 mmol/L (136-145); Total Protein 7.1 g/dL (6.4-8.2)
[2019-03-21 14:16] LABS: Iron 94 ug/dL (50-170); Total Iron Binding Capacity 343 ug/dL (250-450); Transferrin Sat 27 % (15-50)
[2019-03-21 14:30] LABS: Ferritin 34 ng/mL (8-252)
[2019-03-21 14:38] LABS: Anisocytosis 2+; Diff Comment RBC Morph Reviewed
[2019-03-21 14:39] LABS: Poikilocytes 1+
[2019-03-23 09:20] LABS: CA 19-9 8 U/mL (<35)
== END 2019-03-21 01:56 ==
PROVIDERS: PCP Family Medicine; Visit Provider Internal Medicine Hematology & Oncology
DX: C22.1 Intrahepatic bile duct carcinoma (principal); R91.1 Solitary pulmonary nodule; D50.9 Iron deficiency anemia, unspecified
CPT/HCPCS: 36415; 71250; 80053; 82728; 83540; 83550; 85025; 86301

== ENCOUNTER 2019-06-26 02:06 | Outpatient (CLI) | payer MEDICARE, OTHER, SELFPAY ==
[2019-06-26 08:42] LABS: Abs Immature Grans 0.01 k/cumm (0.0-0.09); Absolute Basophil Count 0.06 k/cumm (0.0-0.2); Absolute Eosinophil Count 0.32 k/cumm (0.0-0.7); Absolute Lymphocyte Count 1.46 k/cumm (1.2-3.4); Absolute Monocyte Count 0.66 k/cumm (0.11-0.7); Absolute Neutrophil Count 3.89 k/cumm (1.2-6.7); Basophils % 0.9; HCT 42.6 % (36.0-46.0); Immature Grans % 0.2 %; Lymphocytes % 22.8; Mean Corp. HGB Concentration 32.9 g/dL (32.0-36.0); Mean Corpuscular Hemoglobin 27.9 pg (27.0-33.0); Mean Platelet Volume 11.4 fL (8.0-11.0); Monocytes % 10.3; Neutrophils % 60.8; Platelet Count 285 x1000/uL (130-400); RBC 5.01 m/cumm (4.00-5.20); RBC Distribution Width 14.3 % (11.7-14.6)
[2019-06-26 08:58] LABS: Iron 71 ug/dL (50-170); Total Iron Binding Capacity 352 ug/dL (250-450); Transferrin Sat 20 % (15-50)
[2019-06-26 08:59] LABS: ALT 18 U/L (14-59); AST 16 U/L (15-37); Albumin 3.6 g/dL (3.4-5.0); Alkaline Phosphatase 79 U/L (46-116); Anion Gap 8.1 mmol/L (3-11); BUN 14 mg/dL (7-18); Bilirubin, Total 0.4 mg/dL (0.2-1.0); CO2 29.9 mmol/L (21.0-32.0); CREATININE 0.61 mg/dL (0.55-1.02); Calcium 8.7 mg/dL (8.5-10.1); Chloride 103 mmol/L (98-107); Ferritin 33 ng/mL (8-252); Glucose 87 mg/dL (74-106); Potassium 3.8 mmol/L (3.5-5.1); Sodium 141 mmol/L (136-145); Total Protein 7.1 g/dL (6.4-8.2)
[2019-06-26] MEDS: Normal Saline - Diluent 50 ML VIAL IV (10:02)
[2019-06-26] MEDS: Omnipaque 350 MG/ML 100 ML BTL IJ (10:11)
[2019-06-26] MEDS: Omnipaque 350 MG/ML 50 ML BTL IJ (10:15)
[2019-06-26] MEDS: Breeza Beverage 473 ML BTL PO (10:15)
--- NOTE | 2019-06-26 10:16 | DI.CT_ITS ---
EXAM: CT CHEST/ABD/PEL W CLINICAL HISTORY: H/O CHOLANGIOCARCINOMA, S/P RESECTION, RESTAGING, C22.1 TECHNIQUE: Post IV and oral contrast COMPARISON: CHEST ABD PELVIS WITH CONTRAST from 07/15/2017 CT CHEST/ABD/PEL W from 01/19/2019 CT CHEST WO from 03/21/2019 FINDINGS: Chest CT: Thyroid nodules and hiatal hernia are again noted. There is no evidence of adenopathy, pl eural or pericardial effusions. No pulmonary nodules are identified. There are no suspicious bony abn ormalities. Abdomen and pelvic CT: Resection of the liver and multiple surgical clips are again noted. There are stable low-density liver lesions. There is minimal air in the biliary tree. No adenopathy is seen. Th e spleen, pancreas and adrenals are unremarkable. There is mild diffuse bladder wall thickening, unch anged. There is mild bilateral dilatation of the renal collecting systems. A few tiny renal cysts ar e seen. The patient is status post hysterectomy. There has been a prior right inguinal hernia repair. There is prominent sigmoid diverticulosis without evidence of diverticulitis. No bowel dilatation is seen. No adenopathy is identified in the abdomen or pelvis. No suspicious bony lesions are identifie d. IMPRESSION: No evidence of metastatic disease in the chest, abdomen or pelvis. There is diffuse bladder wall thi ckening which may cause mild bilateral hydronephrosis.
[2019-06-27 11:31] LABS: CA 19-9 11 U/mL (<35)
== END 2019-06-26 02:26 ==
PROVIDERS: PCP Family Medicine; Visit Provider Internal Medicine Hematology & Oncology
DX: C22.1 Intrahepatic bile duct carcinoma (principal); Z12.89 Encounter for screening for malignant neoplasm of other sites; N32.89 Other specified disorders of bladder; E04.2 Nontoxic multinodular goiter; K44.9 Diaphragmatic hernia without obstruction or gangrene; K76.89 Other specified diseases of liver; D50.8 Other iron deficiency anemias
CPT/HCPCS: 74177; 80053; 71260; 82728; 83540; 83550; 85025; 86301; J3490; Q9967

== ENCOUNTER 2019-10-31 03:12 | Outpatient (CLI) | payer MEDICARE, OTHER, SELFPAY ==
[2019-10-31 10:43] LABS: Abs Immature Grans 0.01 k/cumm (0.0-0.09); Absolute Basophil Count 0.05 k/cumm (0.0-0.2); Absolute Eosinophil Count 0.38 k/cumm (0.0-0.7); Absolute Lymphocyte Count 1.78 k/cumm (1.2-3.4); Absolute Monocyte Count 0.65 k/cumm (0.11-0.7); Absolute Neutrophil Count 5.99 k/cumm (1.2-6.7); Basophils % 0.6; Eosinophils % 4.3; HCT 43.9 % (36.0-46.0); HGB 14.7 g/dL (12.0-15.5); Immature Grans % 0.1 %; Lymphocytes % 20.1; Mean Corp. HGB Concentration 33.5 g/dL (32.0-36.0); Mean Corpuscular Hemoglobin 28.2 pg (27.0-33.0); Mean Corpuscular Volume 84.3 fL (80-95); Mean Platelet Volume 11.2 fL (8.0-11.0); Monocytes % 7.3; Neutrophils % 67.6; Platelet Count 274 x1000/uL (130-400); RBC 5.21 m/cumm (4.00-5.20); RBC Distribution Width 13.7 % (11.7-14.6); White Blood Cell Count 8.86 k/cumm (4.4-10.8)
[2019-10-31 11:24] LABS: Iron 188 ug/dL (50-170); Total Iron Binding Capacity 293 ug/dL (250-450); Transferrin Sat 64 % (15-50)
[2019-10-31 11:37] LABS: ALT 23 U/L (14-59); AST 16 U/L (15-37); Albumin 3.8 g/dL (3.4-5.0); Alkaline Phosphatase 76 U/L (46-116); Anion Gap 8.1 mmol/L (3-11); BUN 11 mg/dL (7-18); Bilirubin, Total 0.4 mg/dL (0.2-1.0); CO2 29.9 mmol/L (21.0-32.0); CREATININE 0.59 mg/dL (0.55-1.02); Calcium 9.6 mg/dL (8.5-10.1); Chloride 100 mmol/L (98-107); Ferritin 60 ng/mL (8-252); Glucose 85 mg/dL (74-106); Potassium 4.5 mmol/L (3.5-5.1); Sodium 138 mmol/L (136-145); Total Protein 6.8 g/dL (6.4-8.2)
[2019-11-02 10:23] LABS: CA 19-9 13 U/mL (<35)
== END 2019-10-31 03:32 ==
PROVIDERS: PCP Family Medicine; Visit Provider Internal Medicine Hematology & Oncology
DX: C22.1 Intrahepatic bile duct carcinoma (principal); D50.9 Iron deficiency anemia, unspecified
CPT/HCPCS: 36415; 80053; 82728; 83540; 83550; 85025; 86301

== ENCOUNTER 2019-11-02 02:01 | Outpatient (CLI) | payer MEDICARE, OTHER, SELFPAY ==
--- NOTE | 2019-11-02 06:45 | DI.MAMMO_ITS ---
EXAM: MAMMO SCREENING CLINICAL HISTORY: screening, Z12.39 TECHNIQUE: Mammograms were interpreted according to the usual protocol including computer analysis w ith CAD system, tomosynthesis and C-view imaging. COMPARISON: 2009 through 2018 FINDINGS: The breasts are composed of scattered fibroglandular densities, Breast Density category B. No suspicious masses or suspicious microcalcifications are seen. No skin thickening or abnormal axillary lymph nodes are seen. There has been no significant change from prior exams. IMPRESSION: BI-RADS Category 1, negative mammogram. Yearly screening mammography is recommended. Breast Density Category B, scattered fibroglandular densities.
== END 2019-11-02 02:21 ==
PROVIDERS: PCP Family Medicine; Visit Provider Family Medicine
DX: Z12.31 Encounter for screening mammogram for malignant neoplasm of breast (principal)
CPT/HCPCS: 77063; 77067

== ENCOUNTER 2019-11-30 03:15 | Outpatient (CLI) | payer MEDICARE, OTHER, SELFPAY ==
--- NOTE | 2019-11-30 | DI.US_ITS ---
EXAM: US THYROID CLINICAL HISTORY: F/U THYROID NODULES, 6 MO F/U, COMPARE TO 01/30/19 FROM [facility] [place] TECHNIQUE: Ultrasound performed using standard protocol. COMPARISON: US ABDOMEN ULTRASOUND (P) from 06/16/2017 FINDINGS: Thyroid ultrasound was performed according to the usual protocol. Right thyroid lobe measures 43 x 15 x 13 millimeters and left lobe measures 4125 x 32 millimeters wit h this 7 millimeter thick thyroid isthmus. Examination is compared by report with prior scan from [facility] January 2019. A nodule at the thyroid isthmus measures 19 x 17 x 21 millimeters in diameter and is of mixed cystic and solid echogenicity, this was previously described as 13 x 17 x 20 millimeters. Medial and lateral left lower pole thyroid nodules are noted measuring respectively 15 x 16 x 10 mill imeters in diameter and 26 x 17 x 14 millimeters in diameter. This compares with previously reported 13 x 12 by 13 millimeters and 21 x 14 x 14 millimeters. The left lateral nodule has reportedly been previously biopsied. IMPRESSION: Interval increase in size of medially located left lower pole thyroid nodule since January 2019, this now measures 15 by 16 x 10 millimeters as compared to 13 x 12 x 13 millimeters on the prior study. This is a TR 5 lesion which is taller than wide with with isoechoic solid echogenicity. Biopsy may b e considered due to the increase in size over this period. DATA REPOSITORY:
== END 2019-11-30 03:35 ==
PROVIDERS: PCP Family Medicine; Visit Provider Internal Medicine Endocrinology, Diabetes & Metabolism
DX: E04.2 Nontoxic multinodular goiter (principal)
CPT/HCPCS: 76536

== ENCOUNTER 2019-12-27 04:17 | Outpatient (CLI) | payer MEDICARE, OTHER, SELFPAY ==
[2019-12-27 11:59] LABS: TSH 1.22 uIU/mL (0.36-3.74)
== END 2019-12-27 04:37 ==
PROVIDERS: PCP Family Medicine; Visit Provider Internal Medicine Endocrinology, Diabetes & Metabolism
DX: E04.2 Nontoxic multinodular goiter (principal)
CPT/HCPCS: 36415; 84443

== ENCOUNTER 2020-01-21 01:53 | Outpatient (CLI) | payer MEDICARE, OTHER, SELFPAY ==
--- NOTE | 2020-01-21 | DI.CT_ITS ---
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 TECHNIQUE: Imaging Protocol: Axial computed tomography images with coronal and sagittal reformatted images were created and reviewed CONTRAST MATERIAL: Intravenous: Omnipaque 350 Contrast volume:100 cc Oral: yes / COMPARISON: CT ABD PELVIS WITH CONTRAST from 02/24/[address] CHEST/ABD/PEL W from 06/26/2019 FINDINGS: CHEST: Thyroid: Nodules are again noted at the lower pole of both lobes of the thyroid. Tracheobronchial tree: Patent where visualized. Mediastinum and Elida: No dominant adenopathy or fluid collection. Pulmonary parenchyma: No consolidation or dominant measurable mass. Pleura: No effusion or pneumotho rax. Lymph nodes: Within normal limits. Aorta: Thoracic portion non-dilated. Heart: Normal size. Bones: Degenerative disc changes. ABDOMEN: Liver: Status post resection of left lobe the liver. Small amount of biliary air. Stable liver cyst s. Gallbladder and biliary tract: Status post cholecystectomy. Pancreas: Normal density, no abnormal calcifications or inflammatory process. Spleen: Normal. Kidneys: Normal size, contour and axis. No radiodense stones or obstructive uropathy. No masses seen. Tiny bilateral renal cysts. Adrenal glands: No masses seen. Aorta: Abdominal portion non-dilated. Lymph nodes: Within normal limits. PELVIS: Bladder: Symmetric distention, no gross wall thickening. Bowel: Severe sigmoid diverticulosis. Peritoneal cavity: No ascites, collection or mesenteric inflammatory response. Prior left inguinal he rnia repair. Bones: Degenerative changes. Reproductive organs: Status post hysterectomy. IMPRESSION: Stable postsurgical changes. No evidence of metastatic disease in the chest, abdomen or pelvis. RADIATION DOSE DELIVERED: 1,452.8mGy.cm Total DLP DATA REPOSITORY: All CT scans at this facility are submitted to the National Radiology Data Registry (NRDR) Dose Index Registry (DIR) with the [employer] (ACR). RADIATION OPTIMIZATION: All CT scans at this facility use at least one of these dose optimization te chniques: automated exposure control; mA and/or kV adjustment per patient size (includes targeted exa ms where dose is matched to clinical indication); or iterative reconstruction.
[2020-01-21 08:55] LABS: Abs Immature Grans 0.02 10^3/uL (0.0-0.06); Absolute Basophil Count 0.07 10^3/uL (0.0-0.2); Absolute Eosinophil Count 0.42 10^3/uL (0.0-0.7); Absolute Lymphocyte Count 1.43 10^3/uL (1.2-3.4); Absolute Monocyte Count 0.68 10^3/uL (0.1-0.8); Absolute Neutrophil Count 5.12 10^3/uL (1.2-6.7); Basophils % 0.9; Eosinophils % 5.4; HGB 14.2 g/dL (11.2-15.7); Immature Grans % 0.3; Lymphocytes % 18.5; MCH 28.3 pg (27.0-33.0); MCV 85.8 fL (80-95); MPV 11.7 fL (8.0-11.0); Monocytes % 8.8; Neutrophils % 66.1; Nucleated RBC 0 %; Platelet Count 252 10^3/uL (130-400); RBC 5.01 10^6/uL (3.93-5.22); RDW 13.9 % (11.7-14.6); RDW-SD 43.2 fL; WBC 7.74 10^3/uL (4.4-10.8)
[2020-01-21] MEDS: Omnipaque 350 MG/ML 50 ML BTL IJ (08:56)
[2020-01-21] MEDS: Breeza Beverage 473 ML BTL PO ×2 (08:56→08:57)
[2020-01-21 09:48] LABS: ALT 21 U/L (14-59); AST 17 U/L (15-37); Albumin 3.6 g/dL (3.4-5.0); Alkaline Phosphatase 78 U/L (46-116); BUN 13 mg/dL (7-18); Bilirubin, Total 0.5 mg/dL (0.2-1.0); CREATININE 0.68 mg/dL (0.55-1.02); Calcium 8.9 mg/dL (8.5-10.1); Chloride 103 mmol/L (98-107); Glucose 96 mg/dL (74-106); Potassium 4.5 mmol/L (3.5-5.1); Sodium 138 mmol/L (136-145); Total Protein 7.2 g/dL (6.4-8.2)
[2020-01-21] MEDS: Omnipaque 350 MG/ML 100 ML BTL IV (10:18)
== END 2020-01-21 02:13 ==
PROVIDERS: PCP Family Medicine; Visit Provider Internal Medicine Hematology & Oncology
DX: C22.1 Intrahepatic bile duct carcinoma (principal); D50.8 Other iron deficiency anemias
CPT/HCPCS: 74177; 80053; 71260; 85025; J3490; Q9967

== ENCOUNTER 2020-04-15 03:05 | Outpatient (CLI) | payer MEDICARE, SELFPAY ==
[2020-04-17 00:13] LABS: COVID-19 RT-PCR Result NEGATIVE (Negative)
== END 2020-04-15 03:25 ==
PROVIDERS: PCP Family Medicine; Visit Provider Family Medicine
DX: Z20.828 Contact with and (suspected) exposure to other viral communicable diseases (principal)
CPT/HCPCS: U0003

== ENCOUNTER 2020-11-03 01:44 | Outpatient (CLI) | payer MEDICARE, OTHER, SELFPAY ==
--- NOTE | 2020-11-03 07:45 | DI.MAMMO_ITS ---
Exam(s) MAMMO SCREENING EXAM: MAMMO SCREENING CLINICAL HISTORY: screening,z12.39. TECHNIQUE: Bilateral full field digital CC and MLO mammographic images were obtained with 3D tomosyn thesis and utilizing computer aided detection (CAD). COMPARISON: Prior mammograms dating back to 2010, the most recent being October 2019. FINDINGS: There is a microcalcification group in the right breast located 7 cm in from the nipple which is unch anged from all prior studies and therefore benign Asymmetric density seen bilaterally also appear unchanged. There are no new spiculated masses nor new malignant appearing microcalcification groups. There is no significant architectural distortion nor skin thickening-retraction. IMPRESSION: Stable benign findings. No radiographic evidence of malignancy BI-RADS Category 2 - Benign Findings Breast Density - Category B - Scattered areas of fibroglandular density Breast density Category C or D implies that the patient has dense breast tissue. Dense breast tissue can make it harder to find cancer on a mammogram. Dense breast tissue is also associated with an incr eased risk of breast cancer. This information about the result of the mammogram report was provided to the patient to raise their awareness. Use this report when you speak with the patient about their risks for breast cancer, which includes their family history. At that time, you may recommend additional screening tests (Ultrasoun d or MRI) as these tests may add significant information. A negative radiographic report should not delay biopsy if a dominant or clinically suspicious mass is present. Up to ten percent of cancers are not identified on mammography. A negative report may reinforce clinical impression. Adenosis and dense breasts may obscure an underlying neoplasm. False positive reports average 6 to 10%. Patient will receive a letter notifying them of these results.
== END 2020-11-03 02:04 ==
PROVIDERS: PCP Family Medicine; Visit Provider Family Medicine
DX: Z12.31 Encounter for screening mammogram for malignant neoplasm of breast (principal); R92.8 Other abnormal and inconclusive findings on diagnostic imaging of breast
CPT/HCPCS: 77063; 77067

== ENCOUNTER 2021-03-05 01:07 | Outpatient (CLI) | payer MEDICARE, OTHER, SELFPAY ==
[2021-03-05 08:47] LABS: Abs Immature Grans 0.02 10^3/uL (0.0-0.06); Absolute Basophil Count 0.05 10^3/uL (0.0-0.2); Absolute Eosinophil Count 0.35 10^3/uL (0.0-0.7); Absolute Lymphocyte Count 1.45 10^3/uL (1.2-3.4); Absolute Neutrophil Count 4.43 10^3/uL (1.2-6.7); Basophils % 0.7; Eosinophils % 5.1; HCT 43.9 % (36.0-46.0); HGB 14.1 g/dL (11.2-15.7); Immature Grans % 0.3; MCHC 32.1 % (32.0-36.0); MCV 87.3 fL (80-95); MPV 11.6 fL (8.0-11.0); Monocytes % 8.7; Neutrophils % 64.2; Nucleated RBC 0 %; Platelet Count 245 10^3/uL (130-400); RBC 5.03 10^6/uL (3.93-5.22); RDW 13.5 % (11.7-14.6); RDW-SD 43.3 fL
[2021-03-05] MEDS: Breeza Beverage 473 ML BTL PO (09:04)
[2021-03-05] MEDS: Omnipaque 350 MG/ML 50 ML BTL PO (09:04)
[2021-03-05 09:05] LABS: Albumin 3.6 g/dL (3.4-5.0); BUN 12 mg/dL (7-18); CREATININE 0.6 mg/dL (0.55-1.02); Glucose 93 mg/dL (74-106); Total Protein 7.2 g/dL (6.4-8.2)
[2021-03-05] MEDS: Omnipaque 350 MG/ML 100 ML BTL IJ (09:05)
[2021-03-05] MEDS: Normal Saline - Diluent 50 ML VIAL IV (09:05)
[2021-03-05 09:06] LABS: ALT 21 U/L (14-59); AST 15 U/L (15-37); Alkaline Phosphatase 73 U/L (46-116); Anion Gap 5.2 mmol/L (3-11); Bilirubin, Total 0.5 mg/dL (0.2-1.0); CO2 30.8 mmol/L (21.0-32.0); Chloride 105 mmol/L (98-107); Potassium 4.2 mmol/L (3.5-5.1); Sodium 141 mmol/L (136-145)
--- NOTE | 2021-03-05 10:00 | DI.CT_ITS ---
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 TECHNIQUE: Imaging Protocol: Axial computed tomography images with coronal and sagittal reformatted images were created and reviewed CONTRAST MATERIAL: Intravenous: Omnipaque 350 Contrast volume:100 ml Oral: yes COMPARISON: CT CT CHEST/ABD/PEL W from 07/17/[address] CHEST/ABD/PEL W from 07/17/[address] CHEST/ABD/PEL W from 01/21/2020 FINDINGS: CHEST: Tracheobronchial tree: Patent where visualized. Mediastinum and Elida: No dominant adenopathy or fluid collection. Pulmonary parenchyma: Mild scarring. No consolidation or dominant measurable mass. Pleura: No effusion or pneumothorax. Lymph nodes: Within normal limits. Aorta: Thoracic portion non-dilated. Heart: Normal size. No visible coronary artery calcifications. Bones: Degenerative disc changes with prominent endplate osteophytes. No lytic or blastic lesions. Large hiatal hernia. ABDOMEN: Liver: Status post resection left lobe liver. Normal density. No measurable mass. Gallbladder and biliary tract: Status post cholecystectomy. Stable mild biliary air. Stable small l ow-density liver lesions. No new masses. Portal vein intact. Pancreas: Normal density, no abnormal calcifications or inflammatory process. Spleen: Normal. Kidneys: Normal size, contour and axis. No radiodense stones or obstructive uropathy. No masses seen. Tiny bilateral cysts. Adrenal glands: No masses seen. Aorta: Abdominal portion non-dilated. Lymph nodes: Within normal limits. Soft tissues: Unremarkable. PELVIS: Bladder: Symmetric distention, no gross wall thickening. Bowel: Severe diverticulosis descending sigmoid colon. No evidence of diverticulitis. No obstructio n or bowel wall thickening. Peritoneal cavity: No ascites, collection or mesenteric inflammatory response. Bones: Degenerative changes. Hemangioma L3. Reproductive organs: Pessary. Status post hysterectomy. IMPRESSION: Stable postsurgical changes of the liver. Stable liver cysts. No evidence of metastatic disease in the chest abdomen or pelvis.. RADIATION DOSE DELIVERED: 1,571.75mGy.cm Total DLP DATA REPOSITORY: All CT scans at this facility are submitted to the National Radiology Data Registry (NRDR) Dose Index Registry (DIR) with the [employer] (ACR). RADIATION OPTIMIZATION: All CT scans at this facility use at least one of these dose optimization te chniques: automated exposure control; mA and/or kV adjustment per patient size (includes targeted exa ms where dose is matched to clinical indication); or iterative reconstruction.
[2021-03-06 11:16] LABS: CA 19-9 26 U/mL (<35)
== END 2021-03-05 01:27 ==
PROVIDERS: PCP Family Medicine; Visit Provider Nurse Practitioner Family
DX: C22.1 Intrahepatic bile duct carcinoma (principal); Z90.49 Acquired absence of other specified parts of digestive tract; N28.1 Cyst of kidney, acquired; K57.30 Diverticulosis of large intestine without perforation or abscess without bleeding; K76.89 Other specified diseases of liver
CPT/HCPCS: 74177; 80053; 71260; 85025; 86301; J3490; Q9967

== ENCOUNTER → 2021-10-02 12:24 | Outpatient (BNVA) | payer MEDICARE, OTHER, SELFPAY | PROVIDERS: Referring Provider Family Medicine; Visit Provider Internal Medicine Cardiovascular Disease | DX: I47.1 Supraventricular tachycardia (principal); C22.1 Intrahepatic bile duct carcinoma | CPT/HCPCS: 93005; 99202; 99214 ==

== ENCOUNTER 2021-10-02 12:55 | Outpatient (CLI) | payer MEDICARE, OTHER, SELFPAY ==
--- NOTE | 2021-10-02 12:45 | RT.EKG_ITS ---
APPROVED REPORT Exam: Resting ECG Reason for Exam: SVT Patient Location: O HR:64 bpm ECG Measurements Heart Rate 64 AXIS ID 147 P 28 QRSd 98 QRS -31 QT 423 T 8 QTc 437 Conclusion Sinus rhythm...normal P axis, V-rate 50- 99 Left axis deviation...QRS axis (-30,-90) Abnormal R-wave progression, late transition...QRS area<0 in V5/V6
== END 2021-10-02 12:56 | disposition home or self-care (01) ==
LOC: DI.CARD 12:56
PROVIDERS: Visit Provider Internal Medicine Cardiovascular Disease
DX: I47.1 Supraventricular tachycardia (principal)
CPT/HCPCS: 93010

== ENCOUNTER → 2022-02-15 01:52 | Outpatient (CLI) | payer MEDICARE, SELFPAY ==
--- NOTE | 2022-02-15 | DI.CT_ITS ---
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 TECHNIQUE: Imaging Protocol: Axial computed tomography images with coronal and sagittal reformatted images were created and reviewed CONTRAST MATERIAL: Intravenous: Omnipaque 350 Contrast volume:100 ml Oral: no COMPARISON: CT CT CHEST/ABD/PEL W from 03/05/2021 FINDINGS: CHEST: A port is noted over the right upper chest. Tracheobronchial tree: Patent where visualized. Mediastinum and Elida: No dominant adenopathy or fluid collection. There is a large hiatal hernia. Pulmonary parenchyma: Mild scarring left upper lobe. Exam mildly limited by respiratory motion. Mil d atelectasis right lung base. No consolidation or dominant measurable mass. Pleura: No effusion or pneumothorax. Lymph nodes: Within normal limits. Aorta: Stable diameter 4 cm ascending. Mild atherosclerotic changes. Heart: Normal in size. Bones: Degenerative disc changes. No compression fractures. No lytic or blastic lesions. ABDOMEN: Liver: Prior resection of the left lobe. Multiple surgical clips in this area. Normal density. Sta ble small small low-density lesions. No suspicious measurable mass. Gallbladder and biliary tract: Status post cholecystectomy. Small amount of biliary air. No radiode nse calculus or dilation. Pancreas: Normal density, no abnormal calcifications or inflammatory process. Spleen: Normal. Kidneys: Normal size, contour and axis. No radiodense stones or obstructive uropathy. Stable small c ysts. No masses seen. Adrenal glands: No masses seen. Aorta: Abdominal portion non-dilated. Lymph nodes: Within normal limits. Soft tissues: Unremarkable. PELVIS: Bladder: Low volume., no gross wall thickening. Bowel: Prominent descending and sigmoid colon diverticulosis. No obstruction or bowel wall thickenin g. Peritoneal cavity: No ascites, collection or mesenteric inflammatory response. Bones: Degenerative disc changes and facet degenerative changes. Hemangioma is are seen at T11 and L 3. Reproductive organs: Status post hysterectomy. Pessary noted. Left inguinal hernia repair. IMPRESSION: No evidence of metastatic disease in the chest abdomen or pelvis. RADIATION DOSE DELIVERED: 1,521.1mGy.cm Total DLP DATA REPOSITORY: All CT scans at this facility are submitted to the National Radiology Data Registry (NRDR) Dose Index Registry (DIR) with the [employer] (ACR). RADIATION OPTIMIZATION: All CT scans at this facility use at least one of these dose optimization te chniques: automated exposure control; mA and/or kV adjustment per patient size (includes targeted exa ms where dose is matched to clinical indication); or iterative reconstruction.
[2022-02-15 09:45] LABS: Abs Immature Grans 0.08 10^3/uL (0.0-0.06); Absolute Basophil Count 0.06 10^3/uL (0.0-0.2); Absolute Eosinophil Count 0.09 10^3/uL (0.0-0.7); Basophils % 0.4; Eosinophils % 0.6; HCT 38.4 % (36.0-46.0); HGB 11.9 g/dL (11.2-15.7); Immature Grans % 0.5; Lymphocytes % 8.2; MCV 81 fL (80-95); MPV 11.1 fL (8.0-11.0); Monocytes % 9.9; Neutrophils % 80.4; Platelet Count 271 10^3/uL (130-400); RBC 4.76 10^6/uL (3.93-5.22); RDW 14.6 % (11.7-14.6); RDW-SD 42.5 fL; WBC 15.16 10^3/uL (4.4-10.8)
[2022-02-15] MEDS: Barium Sulfate 2% W/V-Berry Smoothie 450 ML BTL PO ×2 (09:47→09:48)
[2022-02-15 09:48] LABS: Absolute Lymphocyte Count 1.24 10^3/uL (1.2-3.4); Absolute Neutrophil Count 12.19 10^3/uL (1.2-6.7)
[2022-02-15 10:00] LABS: ALT 18 U/L (14-59); AST 15 U/L (15-37); Albumin 3.7 g/dL (3.4-5.0); Alkaline Phosphatase 79 U/L (46-116); Anion Gap 10.3 mmol/L (3-11); BUN 11 mg/dL (7-18); CO2 26.7 mmol/L (21.0-32.0); CREATININE 0.7 mg/dL (0.55-1.02); Calcium 9.4 mg/dL (8.5-10.1); Chloride 102 mmol/L (98-107); Estimated GFR 89.58 (mL/min/1.73m2); Glucose 90 mg/dL (74-106); Sodium 139 mmol/L (136-145)
[2022-02-15] MEDS: Omnipaque 350 MG/ML 500 ML BTL-Imaging package IJ (11:44)
[2022-02-15] MEDS: Normal Saline Flush 10 ML SYR IVP (11:44)
[2022-02-17 10:57] LABS: CA 19-9 59 U/mL (<35)
== END ==
PROVIDERS: PCP Internal Medicine; Visit Provider Internal Medicine Hematology & Oncology
DX: C22.1 Intrahepatic bile duct carcinoma (principal); N28.0 Ischemia and infarction of kidney; Z90.49 Acquired absence of other specified parts of digestive tract; Z90.710 Acquired absence of both cervix and uterus; K44.9 Diaphragmatic hernia without obstruction or gangrene
CPT/HCPCS: 36415; 74177; 80053; 71260; 85025; 86301

== ENCOUNTER 2022-02-24 13:39 | Outpatient (CLI) | payer MEDICARE, SELFPAY ==
[2022-02-24 14:01] LABS: Abs Immature Grans 0.03 10^3/uL (0.0-0.06); Absolute Basophil Count 0.09 10^3/uL (0.0-0.2); Absolute Eosinophil Count 0.35 10^3/uL (0.0-0.7); Absolute Lymphocyte Count 1.63 10^3/uL (1.2-3.4); Absolute Monocyte Count 0.59 10^3/uL (0.1-0.8); Absolute Neutrophil Count 5.56 10^3/uL (1.2-6.7); Basophils % 1.1; Eosinophils % 4.2; HGB 11.7 g/dL (11.2-15.7); Immature Grans % 0.4; Lymphocytes % 19.8; MCH 25.1 pg (27.0-33.0); MCHC 31.6 % (32.0-36.0); MCV 79 fL (80-95); MPV 10.8 fL (8.0-11.0); Monocytes % 7.2; Neutrophils % 67.3; Platelet Count 418 10^3/uL (130-400); RBC 4.67 10^6/uL (3.93-5.22); RDW 14.6 % (11.7-14.6); RDW-SD 42.2 fL; WBC 8.25 10^3/uL (4.4-10.8)
[2022-02-24 14:38] LABS: Ferritin 23 ng/mL (8-252)
[2022-02-24 14:55] LABS: Iron 25 ug/dL (50-170); Total Iron Binding Capacity 424 ug/dL (250-450); Transferrin Sat 6 % (15-50)
== END 2022-02-24 13:40 | disposition home or self-care (01) ==
LOC: LBO 13:40
PROVIDERS: PCP Internal Medicine; Visit Provider Internal Medicine Hematology & Oncology
DX: D50.9 Iron deficiency anemia, unspecified (principal)
CPT/HCPCS: 36415; 82728; 83540; 83550; 85025

== ENCOUNTER 2022-07-20 02:28 | Outpatient (CLI) | payer MEDICARE, SELFPAY ==
[2022-07-20 12:11] LABS: Abs Immature Grans 0.02 10^3/uL (0.0-0.06); Absolute Basophil Count 0.05 10^3/uL (0.0-0.2); Absolute Eosinophil Count 0.34 10^3/uL (0.0-0.7); Absolute Lymphocyte Count 1.66 10^3/uL (1.2-3.4); Absolute Monocyte Count 0.61 10^3/uL (0.1-0.8); Absolute Neutrophil Count 4.93 10^3/uL (1.2-6.7); Basophils % 0.7; Eosinophils % 4.5; HCT 42.7 % (36.0-46.0); HGB 14.1 g/dL (11.2-15.7); Immature Grans % 0.3; Lymphocytes % 21.8; MCH 27.9 pg (27.0-33.0); MCV 84 fL (80-95); MPV 10.7 fL (8.0-11.0); Neutrophils % 64.7; Platelet Count 268 10^3/uL (130-400); RBC 5.06 10^6/uL (3.93-5.22); RDW 13.6 % (11.7-14.6); RDW-SD 42.2 fL; WBC 7.61 10^3/uL (4.4-10.8)
[2022-07-20 13:19] LABS: Iron 120 ug/dL (50-170); Total Iron Binding Capacity 322 ug/dL (250-450); Transferrin Sat 37 % (15-50)
[2022-07-20 13:21] LABS: ALT 19 U/L (14-59); AST 14 U/L (15-37); Albumin 3.7 g/dL (3.4-5.0); Alkaline Phosphatase 81 U/L (46-116); Anion Gap 6.6 mmol/L (3-11); BUN 14 mg/dL (7-18); Bilirubin, Total 0.3 mg/dL (0.2-1.0); CO2 30.4 mmol/L (21.0-32.0); CREATININE 0.7 mg/dL (0.55-1.02); Calcium 9.1 mg/dL (8.5-10.1); Chloride 104 mmol/L (98-107); Estimated GFR 89.58 (mL/min/1.73m2); Ferritin 58 ng/mL (8-252); Glucose 103 mg/dL (74-106); Potassium 4.5 mmol/L (3.5-5.1); Sodium 141 mmol/L (136-145); Total Protein 7.2 g/dL (6.4-8.2)
[2022-07-21 10:17] LABS: CA 19-9 128 U/mL (<35)
== END 2022-07-20 02:29 | disposition home or self-care (01) ==
LOC: LBO 02:28
PROVIDERS: PCP Internal Medicine; Visit Provider Internal Medicine Hematology & Oncology
DX: C22.1 Intrahepatic bile duct carcinoma (principal)
CPT/HCPCS: 36415; 80053; 82728; 83540; 83550; 85025; 86301

== ENCOUNTER 2022-08-30 01:21 | Outpatient (CLI) | payer MEDICARE, SELFPAY ==
[2022-08-30] MEDS: Breeza Beverage 473 ML BTL PO (09:05)
[2022-08-30] MEDS: Omnipaque 350 MG/ML 50 ML BTL PO (09:05)
[2022-08-30 09:34] LABS: Abs Immature Grans 0.02 10^3/uL (0.0-0.06); Absolute Basophil Count 0.09 10^3/uL (0.0-0.2); Absolute Eosinophil Count 0.42 10^3/uL (0.0-0.7); Absolute Lymphocyte Count 1.54 10^3/uL (1.2-3.4); Absolute Monocyte Count 0.57 10^3/uL (0.1-0.8); Absolute Neutrophil Count 4.77 10^3/uL (1.2-6.7); Basophils % 1.2; Eosinophils % 5.7; HCT 44.3 % (36.0-46.0); HGB 14.4 g/dL (11.2-15.7); Immature Grans % 0.3; Lymphocytes % 20.8; MCH 27.7 pg (27.0-33.0); MCHC 32.5 % (32.0-36.0); MCV 85 fL (80-95); MPV 10.7 fL (8.0-11.0); Monocytes % 7.7; Neutrophils % 64.3; Platelet Count 296 10^3/uL (130-400); RDW-SD 43.4 fL; WBC 7.41 10^3/uL (4.4-10.8)
[2022-08-30 09:57] LABS: ALT 24 U/L (14-59); AST 17 U/L (15-37); Albumin 3.8 g/dL (3.4-5.0); Alkaline Phosphatase 109 U/L (46-116); Anion Gap 5.9 mmol/L (3-11); BUN 13 mg/dL (7-18); Bilirubin, Total 0.7 mg/dL (0.2-1.0); CO2 31.1 mmol/L (21.0-32.0); CREATININE 0.7 mg/dL (0.55-1.02); Calcium 9.4 mg/dL (8.5-10.1); Chloride 103 mmol/L (98-107); Estimated GFR 89.58 (mL/min/1.73m2); Glucose 93 mg/dL (74-106); Sodium 140 mmol/L (136-145); Total Protein 7.8 g/dL (6.4-8.2)
--- NOTE | 2022-08-30 10:00 | DI.CT_ITS ---
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 TECHNIQUE: Imaging Protocol: Axial computed tomography images with coronal and sagittal reformatted images were created and reviewed CONTRAST MATERIAL: Intravenous: Omnipaque 350 Contrast volume:100 ml Oral: yes / COMPARISON: CT CT CHEST/ABD/PEL W from 02/15/2022 FINDINGS: CHEST: Stable thyroid nodules. Tracheobronchial tree: Patent where visualized. Pulmonary parenchyma: No consolidation or dominant measurable mass. Show mild scarring medial left u pper lobe. Pleura: No effusion or pneumothorax. Lymph nodes: Within normal limits. Aorta: Stable mild dilatation ascending aorta 4 cm. Heart: Normal size Bones: Unremarkable for age. No lytic or blastic lesions.No compression fractures. Large hiatal hernia. ABDOMEN: Liver: Prior resection of the left lobe. Normal overall attenuation. No suspicious mass. Stable tiny low-density lesions. Gallbladder and biliary tract: Status post cholecystectomy. Small amount of biliary air again noted. Pancreas: Normal density, no abnormal calcifications or inflammatory process. Spleen: Normal. Kidneys: Normal size, contour and axis. No radiodense stones or obstructive uropathy. Stable small c ysts. No suspicious masses seen. Adrenal glands: No masses seen. Aorta: Abdominal portion non-dilated. Lymph nodes: Within normal limits. Soft tissues: Left inguinal hernia repair. PELVIS: Bladder: Symmetric distention, no gross wall thickening. Bowel: Diverticulosis. No evidence of diverticulitis. No obstruction or bowel wall thickening. Peritoneal cavity: No ascites, collection or mesenteric inflammatory response. Bones: Degenerative changes. Hemangiomas again noted at T11 and L3. Reproductive organs: Status post hysterectomy. Pessary. IMPRESSION: No evidence of metastatic disease or other acute abnormality in the chest, abdomen or pelvis.. RADIATION DOSE DELIVERED: 1,227.9mGy.cm Total DLP DATA REPOSITORY: All CT scans at this facility are submitted to the National Radiology Data Registry (NRDR) Dose Index Registry (DIR) with the [employer] (ACR). RADIATION OPTIMIZATION: All CT scans at this facility use at least one of these dose optimization te chniques: automated exposure control; mA and/or kV adjustment per patient size (includes targeted exa ms where dose is matched to clinical indication); or iterative reconstruction.
[2022-08-30] MEDS: Normal Saline - Diluent 50 ML VIAL IJ (10:52)
[2022-08-30] MEDS: Omnipaque 350 MG/ML 500 ML BTL-Imaging package IJ (10:53)
[2022-08-30 17:45] LABS: CEA 1.9 ng/mL (See Note)
[2022-09-01 10:44] LABS: CA 19-9 165 U/mL (<35)
== END 2022-08-30 01:41 ==
LOC: DI 01:21
PROVIDERS: PCP Internal Medicine; Visit Provider Nurse Practitioner Family
DX: E74.01 von Gierke disease (principal); C22.1 Intrahepatic bile duct carcinoma; R97.0 Elevated carcinoembryonic antigen [CEA]
CPT/HCPCS: 74177; 80053; 71260; 82378; 85025; 86301; Q9967

== ENCOUNTER → 2023-06-20 02:46 | Outpatient (CLI) | payer MEDICARE, SELFPAY ==
[2023-06-20 11:03] LABS: CREATININE 0.7 mg/dL (0.55-1.02); Estimated GFR 89.02 (mL/min/1.73m2)
[2023-06-20] MEDS: Barium Sulfate 2% W/V-Berry Smoothie 450 ML BTL PO ×2 (12:40→12:41)
[2023-06-20] MEDS: Omnipaque 350 MG/ML 500 ML BTL-Imaging package 100 ML IJ (14:18)
--- NOTE | 2023-06-20 14:20 | DI.CT_ITS ---
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 TECHNIQUE: Imaging Protocol: Axial computed tomography images with coronal and sagittal reformatted images were created and reviewed CONTRAST MATERIAL: Intravenous: Omnipaque 350 Contrast volume:100 ml Oral: Yes. Oral contrast was also administered for bowel opacification. COMPARISON: CT CT CHEST/ABD/PEL W from 08/30/2022 FINDINGS: CHEST: LUNGS: There are no concerning lung nodules nor pleural effusions.. Mild increased markings in the a nterior segment of the right upper lobe are unchanged. No significant findings in the trachea and ma instem bronchi. MEDIASTINUM: There is no hilar nor mediastinal adenopathy. Visualized thyroid unremarkable.Large hiat al hernia again noted versus gastric pull-up. CARDIAC: Heart size is normal. There is no pericardial effusion.Of the ascending thoracic aorta is e nlarged, measuring 4 cm. No evidence of dissection. This, however, is unchanged from previous. OSSEOUS: No significant osseous lesions.No fractures. Multilevel chronic degenerative disc disease, most prominent at T11-T12 level. Also at each level in the lumbar spine and there is also degenerati ve anterolisthesis L4 upon L5 which is unchanged. ABDOMEN: Large hiatal hernia versus gastric pull-up again noted. Most of the stomach is again noted be in the chest. Duodenum appears unremarkable. LIVER: There are multiple surgical clips from left hepatic lobe resection and prior cholecystectomy. There is biliary enterostomy . mild amount of air seen within intrahepatic ducts. Small benign cyst s are again noted in the liver, unchanged. There are no new ominous a [place] lesions identified. GALLBLADDER/BILIARY: Gallbladder surgically absent PANCREAS: No evidence of pancreatic mass nor dilatation of the pancreatic duct. SPLEEN: Spleen is not enlarged. There are no intrasplenic lesions. Splenic and portal veins are carranza nt. ADRENALS: There are no significant adrenal masses. KIDNEYS: No calculi nor hydronephrosis. No solid renal masses. Small benign cyst in the anterior sheila ex of the right kidney is unchanged. Another small benign unchanged cyst also noted in the posterior cord left kidney and other smaller bilateral cortical cysts are again noted. These do not require f urther workup. There are no solid lesions in either kidney. No calcs. No hydro ABDOMINAL AORTA: Abdominal aorta is not enlarged. LYMPH NODES: There is no retroperitoneal nor paraaortic adenopathy. No new mesenteric masses nor asc ites. No omental cake. ABDOMINAL WALL: No evidence of anterior abdominal wall hernia. Density at the left inguinal ring is unchanged and most probably related to prior hernia repair. No hernias presently evident. GI: There is no evidence of bowel obstruction. No ascites. PELVIS: LYMPH NODES: There is no intrapelvic nor inguinal adenopathy. GI: No evidence of appendicitis.Extensive sigmoid diverticulosis as well as diverticulosis of the evin cending-left colon noted. There is, however, no evidence of obvious acute diverticulitis. URINARY BLADDER: No calculi nor masses evident REPRODUCTIVE: Uterus surgically absent. There is a pessary in the upper vagina. OSSEOUS: No significant osseous lesions. Degenerative anterolisthesis L4 upon L5 again noted as well as multilevel degenerative disc disease. IMPRESSION: 1. Stable appearance with no evidence of metastatic disease in the chest, abdomen, and pelvis. 2. Again noted is prior resection of a left hepatic lobe, cholecystectomy, and hysterectomy. No evid ence of bowel obstruction, free air, nor abscess. 3. Pessary in place in the upper vagina. RADIATION DOSE DELIVERED: 1,552.65mGy.cm Total DLP DATA REPOSITORY: All CT scans at this facility are submitted to the National Radiology Data Registry (NRDR) Dose Index Registry (DIR) with the [employer] (ACR). RADIATION OPTIMIZATION: All CT scans at this facility use at least one of these dose optimization te chniques: automated exposure control; mA and/or kV adjustment per patient size (includes targeted exa ms where dose is matched to clinical indication); or iterative reconstruction.
[2023-06-22 10:21] LABS: CA 19-9 425 U/mL (<35)
== END ==
PROVIDERS: PCP Internal Medicine; Visit Provider Nurse Practitioner Family
DX: R97.8 Other abnormal tumor markers (principal)
CPT/HCPCS: 74177; 71260; 82565; 86301

== ENCOUNTER 2024-11-23 01:23 | Outpatient (CLI) | payer MEDICARE, SELFPAY ==
--- NOTE | 2024-11-23 | DI.CT_ITS ---
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 TECHNIQUE: Imaging Protocol: Axial computed tomography images with coronal and sagittal reformatted images were created and reviewed CONTRAST MATERIAL: Intravenous: Omnipaque 350 Contrast volume:100 ml Oral: Yes. Oral contrast was also administered for bowel opacification. COMPARISON: CT CT CHEST/ABD/PEL W from 06/20/2023 FINDINGS: CHEST: LUNGS: Some scarring left upper lobe is unchanged. Mild increased markings in the anterior right lung are again noted, unchanged. There are no new metastatic appearing lung nodules and there are no pleural effusions.. MEDIASTINUM: There is no hilar nor mediastinal adenopathy. Large hiatal hernia or gastric pull-up again noted. Most of the stomach is again noted to be in the chest. CARDIAC: Heart size is normal. There is no pericardial effusion.The diameter of the ascending thoracic aorta is enlarged, measuring 0.3 cm. There is no evidence of dissection. The diameter of the mid aortic arch as well as the descending thoracic aorta are upper normal. OSSEOUS: No significant osseous lesions.No fractures. Degenerative changes in both shoulder glenohumeral joints is noted. ABDOMEN: Again noted is evidence of left hepatic lobe resection, cholecystectomy and biliaryenterostomy. Most of the stomach is again noted be in the chest, similar to previous. LIVER: There are few small benign cysts in the liver again noted, measuring up to 9 mm, unchanged. There are no new ominous hepatic lesions identified. GALLBLADDER/BILIARY: Gallbladder is again noted be surgically absent. PANCREAS: No evidence of pancreatic mass nor dilatation of the pancreatic duct. SPLEEN: Spleen is not enlarged. There are no intrasplenic lesions. Splenic and portal veins are patent. ADRENALS: There are no significant adrenal masses. KIDNEYS: No calculi nor hydronephrosis. No solid renal masses. There are few small benign sub cm cortical cysts again noted in both kidneys. These do not require further imaging follow-up. ABDOMINAL AORTA: Calcified but not enlarged. LYMPH NODES: There is no retroperitoneal nor paraaortic adenopathy. ABDOMINAL WALL: On the right side of the abdomen-pelvis there is an opacified small bowel loop which appears to be in in anterior abdominal hernia sac at this level which was not previously present. This appears to be a probable low spigelian hernia. There is no transition point. There is no ipsilateral inguinal hernia but there is again noted density at the level of the left internal inguinal ring which is unchanged from 06/20/2023 and is most probably from prior inguinal hernia repair. There is some increased density in the midline in the anterior abdominal wall which was not previously evident. Suspect that this may be related to interval surgery. This is just above the umbilicus. Cannot exclude possibly that this is an infectious process as it was not evident on the prior study. GI: The oral contrast the has progressed to the level the rectum at the time of image acquisition. There is no evidence of bowel obstruction. PELVIS: LYMPH NODES: There is no intrapelvic nor inguinal adenopathy. GI: No evidence of appendicitis.Sigmoid diverticuli noted but no evidence of obvious acute diverticulitis. URINARY BLADDER: No calculi nor masses evident the anterior right side of the urinary bladder is being drawn towards the right inguinal canal but is not in the inguinal canal REPRODUCTIVE: Uterus is again noted be surgically absent. There is an upper vaginal pessary again noted in place. There are no abnormal adnexal masses. OSSEOUS: No significant osseous lesions. No fractures. Disc space narrowing at multiple levels and there is again noted degenerative anterolisthesis of L4 upon L5 related to facet arthropathy. IMPRESSION: 1. Compared to the prior CT scan of May 2023 there is again noted evidence of left hepatic lobe resection, biliary enterostomy, and cholecystectomy. There is also been prior hysterectomy and left inguinal hernia repair. There is no evidence of bowel obstruction, free air, nor abscess. 2. There is no evidence of new metastatic disease in the chest, abdomen, and pelvis. 3. There is a new right-sided anterior abdominal hernia which appears to be a low spigelian-type hernia and it contains an opacified small bowel loop. There does not appear to be an abrupt transition point at this level. Correlation with site of tenderness is recommended. 4. Other findings as above. RADIATION DOSE DELIVERED: 670.62mGy.cm Total DLP DATA REPOSITORY: All CT scans at this facility are submitted to the National Radiology Data Registry (NRDR) Dose Index Registry (DIR) with the [employer] (ACR). RADIATION OPTIMIZATION: All CT scans at this facility use at least one of these dose optimization techniques: automated exposure control; mA and/or kV adjustment per patient size (includes targeted exams where dose is matched to clinical indication); or iterative reconstruction.
[2024-11-23] MEDS: Barium Sulfate 2% W/V-Berry Smoothie 450 ML BTL PO (07:48)
[2024-11-23] MEDS: Barium Sulfate 2% W/V-Creamy Vanilla Smoothie 450 ML BTL PO (07:49)
[2024-11-23 08:11] LABS: Abs Immature Grans 0.02 10^3/uL (0.0-0.06); HCT 41.9 % (36.0-46.0); HGB 13.2 g/dL (11.2-15.7); Immature Grans % 0.2 %; MCH 26.3 pg (27.0-33.0); MCHC 31.5 % (32.0-36.0); MCV 84 fL (80-95); MPV 10.6 fL (8.0-11.0); Platelet Count 315 10^3/uL (130-400); RBC 5.01 10^6/uL (3.93-5.22); RDW 14.1 % (11.7-14.6); RDW-SD 42.3 fL; WBC 8.25 10^3/uL (4.4-10.8)
[2024-11-23 08:37] LABS: ALT 19 U/L (14-59); AST 13 U/L (15-37); Albumin 3.4 g/dL (3.4-5.0); Alkaline Phosphatase 81 U/L (46-116); Anion Gap 7.7 mmol/L (3-11); BUN 8 mg/dL (7-18); Bilirubin, Total 0.4 mg/dL (0.2-1.0); CO2 31.3 mmol/L (21.0-32.0); Calcium 9.1 mg/dL (8.5-10.1); Chloride 101 mmol/L (98-107); Estimated GFR 91.25 (mL/min/1.73m2); Glucose 98 mg/dL (74-106); Potassium 4.5 mmol/L (3.5-5.1); Sodium 140 mmol/L (136-145); Total Protein 7.4 g/dL (6.4-8.2)
[2024-11-23 20:36] LABS: CA 19-9 1597 U/mL (<35)
== END 2024-11-23 01:43 ==
PROVIDERS: PCP Internal Medicine; Visit Provider Internal Medicine Hematology & Oncology
DX: C22.1 Intrahepatic bile duct carcinoma (principal); K45.8 Other specified abdominal hernia without obstruction or gangrene
CPT/HCPCS: 74177; 80053; 71260; 85025; 86301

== ENCOUNTER 2024-12-20 15:19 | Outpatient (REF) | payer MEDICARE, SELFPAY ==
[2024-12-20 10:33] LABS: Abs Immature Grans 0.05 10^3/uL (0.0-0.06); HCT 41.5 % (36.0-46.0); HGB 13.2 g/dL (11.2-15.7); Immature Grans % 0.6 %; MCH 25.8 pg (27.0-33.0); MCHC 31.8 % (32.0-36.0); MCV 81 fL (80-95); MPV 11.4 fL (8.0-11.0); Platelet Count 324 10^3/uL (130-400); RBC 5.11 10^6/uL (3.93-5.22); RDW 14.3 % (11.7-14.6); RDW-SD 42.4 fL; WBC 9.01 10^3/uL (4.4-10.8)
[2024-12-20 11:04] LABS: ALT 21 U/L (14-59); AST 17 U/L (15-37); Albumin 3.5 g/dL (3.4-5.0); Alkaline Phosphatase 104 U/L (46-116); Anion Gap 6.6 mmol/L (3-11); BUN 11 mg/dL (7-18); Bilirubin, Total 0.4 mg/dL (0.2-1.0); CO2 28.4 mmol/L (21.0-32.0); Calcium 8.7 mg/dL (8.5-10.1); Chloride 102 mmol/L (98-107); Estimated GFR 91.25 (mL/min/1.73m2); Glucose 117 mg/dL (74-106); Potassium 4.1 mmol/L (3.5-5.1); Sodium 137 mmol/L (136-145); TSH 1.26 uIU/mL (0.36-3.74); Total Protein 7.2 g/dL (6.4-8.2)
[2024-12-20 11:59] LABS: Magnesium 2.1 mg/dL (1.8-2.4)
[2024-12-21 11:29] LABS: CA 19-9 2173 U/mL (<35)
== END 2024-12-20 15:20 | disposition home or self-care (01) ==
LOC: LBN 15:19
PROVIDERS: PCP Internal Medicine; Visit Provider Internal Medicine Hematology & Oncology
DX: Z79.899 Other long term (current) drug therapy (principal); C22.1 Intrahepatic bile duct carcinoma
CPT/HCPCS: 80053; 83735; 84439; 84443; 85025; 86301

== ENCOUNTER 2025-01-25 04:30 | Outpatient (CLI) | payer MEDICARE, SELFPAY ==
--- NOTE | 2025-01-25 | DI.CT_ITS ---
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 TECHNIQUE: Imaging Protocol: Axial computed tomography images with coronal and sagittal reformatted images were created and reviewed CONTRAST MATERIAL: Intravenous: Omnipaque 350 Contrast volume:100 ml Oral: None COMPARISON: CT CT CHEST/ABD/PEL W from 11/23/2024 FINDINGS: CHEST: LUNGS: Scarring in the left upper lobe is unchanged as are increased markings in the anterior right lung. Tiny 2 millimeter benign-appearing nodule in the right lower lobe is also unchanged. There are no new ominous pulmonary nodules nor pleural effusions. No new findings in the trachea and mainstem bronchi.. MEDIASTINUM: There is no hilar nor mediastinal adenopathy. Large hiatal hernia or gastric pull up again noted. Most of the stomach is again noted to be in the chest. CARDIAC: Heart size is normal. There is no pericardial effusion.The diameter of the thoracic aorta is again noted be enlarged, measuring 4.3 cm. There is no evidence of dissection. The diameter of the mid aortic arch and descending thoracic aorta are upper normal. OSSEOUS: No fractures nor significant osseous lesions. Multilevel chronic degenerative disc disease is noted. Again noted are sclerotic changes in the vertebral bodies, on both sides of the T 11-T12 disc space, similar to previous. Also again noted is unchanged anterolisthesis L4 upon L5 . ABDOMEN: Again noted is evidence of left hepatic lobe resection, cholecystectomy, and bili 0 enterostomy and most of the stomach is again noted be in the chest, similar to previous. LIVER: A few small benign cysts in the remaining liver are again noted measuring up to 9 mm. No new lesions in the liver nor significant dilatation of intrahepatic ducts. There is no abnormal fluid collection around the region of the biliary enterostomy. There is no significant adenopathy in this region. GALLBLADDER/BILIARY: Gallbladder is again noted be surgically absent. PANCREAS: No evidence of pancreatic mass nor dilatation of the pancreatic duct. SPLEEN: Spleen is not enlarged. There are no intrasplenic lesions. Splenic and portal veins are patent. ADRENALS: There are no significant adrenal masses. KIDNEYS: No calculi nor hydronephrosis. No solid renal masses. There is small benign cortical cysts noted in both kidneys, these measuring less than 1 cm. These benign cysts do not require further imaging workup. ABDOMINAL AORTA: Calcified but not enlarged. Iliac arteries also unremarkable. LYMPH NODES: There is no retroperitoneal nor paraaortic adenopathy. ABDOMINAL WALL: The previously described small bowel loops in what is probably a right-sided spigelian hernias again noted. This bowel loop does not appear edematous and there is no transition point at this level. The previously described density at the level the left internal inguinal ring is again noted, unchanged from the recent study as well as 06/20/2023 and probably related to prior left inguinal hernia repair surgery. GI: There is no evidence of bowel obstruction.The administered oral contrast has reached the right-side of the colon.. There is no evidence of small-bowel obstruction. PELVIS: LYMPH NODES: There is no intrapelvic nor inguinal adenopathy. GI: No evidence of appendicitis.There is sigmoid diverticuli again noted without evidence of acute diverticulitis. URINARY BLADDER: Unchanged appearance from previous. REPRODUCTIVE: Uterus is again noted be surgically absent. There are no abnormal adnexal masses nor free fluid in the pelvis. A pessary again noted in the upper vagina. OSSEOUS: No significant osseous lesions. No fractures. Degenerative anterolisthesis of L4 upon L5 is again noted. IMPRESSION: 1. Compared to the prior CT scan of May 2023 and 11/23/2024 there is again noted evidence of left hepatic lobe resection, cholecystectomy, and biliary enterostomy and most of the stomach is again noted be in the chest. There is no evidence of mass, lymphadenopathy, nor abnormal fluid collections in this region nor elsewhere in the abdomen and pelvis. 2. Again noted is evidence of prior hysterectomy and left inguinal hernia repair. No evidence of bowel obstruction nor free air nor abscess. 3. The right-sided low spigelian type type hernia is again noted, again noted to contain an opacified and non edematous small bowel loop. There is no transition point at this level and there does not appear to be evidence of a bowel obstruction. 4. Stable appearing previously described lung findings. No evidence of new metastatic disease in the chest. No intrathoracic adenopathy nor pleural effusions. 5. Dilated ascending thoracic aorta which is again noted to exhibit diameter 4.3 cm. There is no evidence of aortic dissection. No pericardial effusion. RADIATION DOSE DELIVERED: 620.12mGy.cm Total DLP DATA REPOSITORY: All CT scans at this facility are submitted to the National Radiology Data Registry (NRDR) Dose Index Registry (DIR) with the [employer] (ACR). RADIATION OPTIMIZATION: All CT scans at this facility use at least one of these dose optimization techniques: automated exposure control; mA and/or kV adjustment per patient size (includes targeted exams where dose is matched to clinical indication); or iterative reconstruction.
[2025-01-25] MEDS: Barium Sulfate 2% W/V-Berry Smoothie 450 ML BTL PO (08:40)
[2025-01-25] MEDS: Barium Sulfate 2% W/V-Creamy Vanilla Smoothie 450 ML BTL PO (08:40)
[2025-01-25] MEDS: Omnipaque 350 MG/ML 500 ML BTL-Imaging package IJ (10:27)
[2025-01-25] MEDS: Normal Saline Flush 10 ML SYR IVP (10:30)
[2025-01-25] MEDS: Normal Saline - Diluent 50 ML VIAL IJ (10:30)
== END 2025-01-25 04:50 ==
LOC: DI 04:30
PROVIDERS: PCP Internal Medicine; Visit Provider Nurse Practitioner Family
DX: K76.0 Fatty (change of) liver, not elsewhere classified (principal); C22.1 Intrahepatic bile duct carcinoma
CPT/HCPCS: 74177; 71260

== ENCOUNTER → 2025-03-29 00:27 | Outpatient (CLI) | payer MEDICARE, SELFPAY ==
--- NOTE | 2025-03-29 | DI.CT_ITS ---
Exam(s) CT CHEST/ABD/PEL W EXAM: CT CHEST/ABD/PEL W CLINICAL HISTORY: CHOLANGIOCARCINOMA,C22.1,EVAL TREATMENT RESPONSE. TECHNIQUE: Imaging Protocol: Axial computed tomography images with coronal and sagittal reformatted images were created and reviewed CONTRAST MATERIAL: Intravenous: Omnipaque 350 Contrast volume:100 ml Oral: . Oral contrast was also administered for bowel opacification. COMPARISON: CT CT CHEST/ABD/PEL W from 01/25/2025 FINDINGS: CHEST: LUNGS: There are no new pulmonary findings. Stable scarring in the left upper lobe is again noted as are benign-appearing increased markings in the medial right lung adjacent to the heart border. There are no new infiltrates nor pleural effusions and there are no significant pulmonary nodules evident. No new findings in the trachea and mainstem bronchi. Incidentally noted is a significant intraluminal filling defect in right lower lobe pulmonary artery, not previously present and consistent with pulmonary emboli (series 10/images 80-92) there are no other involved vessels in either lung field and there is no evidence of pulmonary infarction. No pleural effusion. MEDIASTINUM: There is no hilar nor mediastinal adenopathy. Large hiatal hernia again noted. CARDIAC: Heart size is normal. There is no pericardial effusion.Diameter of the ascending thoracic aorta is again noted be enlarged measuring 4.1 cm. No evidence of dissection. There is also no obvious significant shift of the interventricular septum evident. OSSEOUS: Again noted is sclerotic change in the vertebral bodies on both sides of T11 and T12 disc space, similar to previous and there is again noted anterolisthesis of L4 upon L5. There are no new lytic osseous lesions evident.. ABDOMEN: Again noted is evidence of left hepatic lobe resection, cholecystectomy and bili 0 enterostomy (and a large part of the stomach is again noted to be in the chest). LIVER: 2 small cysts are again noted in the liver. No new hepatic lesion evident. GALLBLADDER/BILIARY: Gallbladder is again noted be surgically absent. There is no obvious abnormality in the region of the biliary enterostomy and there are no dilated intrahepatic ducts. There does not appear to be significant new abnormal tissue nor lymphadenopathy in the region of the surgical bed. PANCREAS: No evidence of pancreatic mass nor dilatation of the pancreatic duct. SPLEEN: Spleen is not enlarged. There are no intrasplenic lesions. Splenic vein is patent. Superior mesenteric vein is patent as is the main portal vein and remaining intrahepatic portal veins. ADRENALS: There are no significant adrenal masses. KIDNEYS: There again noted small benign cortical cysts in both kidneys. These do not require further workup. No solid renal masses nor calculi nor hydronephrosis. No hydroureter. Urinary bladder is collapsed. ABDOMINAL AORTA: Abdominal aorta is calcified but not enlarged.. LYMPH NODES: There is no retroperitoneal nor new paraaortic adenopathy. ABDOMINAL WALL: No evidence of significant anterior abdominal wall nor inguinal hernia. Previously described right-side probable spigelian hernia is again noted which contains non obstructed bowel loops, similar to previous. There is also a finding at the left inguinal ring again noted which most probably is related to prior left inguinal hernia repair. GI: There is no evidence of bowel obstruction. PELVIS: LYMPH NODES: There is no intrapelvic nor inguinal adenopathy. GI: No evidence of appendicitis.There is extensive sigmoid diverticulosis but no obvious acute diverticulitis. URINARY BLADDER: Urinary bladder wall is thickened but difficult to evaluate as the bladder is almost completely collapsed. REPRODUCTIVE: Uterus is surgically absent. There is again noted a pessary in the upper vagina. There are no abnormal adnexal masses and no free fluid in the pelvis. OSSEOUS: No significant new osseous lesions. No fractures. IMPRESSION: 1. Compared to the prior CT scan of 01/25/2025 there is again noted evidence of left hepatic lobe resection, cholecystectomy and biliary enterostomy and a large retrocardiac hiatal hernia is again noted. There is no evidence of new mass, lymphadenopathy, nor abnormal fluid collections in the surgical bed nor elsewhere in the abdomen and pelvis and there is no obstruction of the biliary tree. 2. Incidentally noted is intraluminal filling defect consistent with pulmonary embolus in a right lower lobe pulmonary artery which was not evident on the recent scan of 01/25/2025. There is no pulmonary infarction nor pleural effusion. There are no new ominous pulmonary nodules nor intrathoracic lym phadenopathy. 3. Again noted is evidence of prior hysterectomy and left inguinal hernia repair. Vaginal pessary again noted. 4. Right-sided spigelian type hernias again noted, again noted to contain bowel loops which do not appear edematous nor obstructed this time.. Findings discussed by phone with the [facility] video control operator oncologist Dr. Tayler Mcnamara Tuesday03/29/2025 at 17:15 p.m.. She will be contacting the patient and sending the patient to the emergency room. Also contacted the emergency room provider concerning this case. RADIATION DOSE DELIVERED: 660.14mGy.cm Total DLP DATA REPOSITORY: All CT scans at this facility are submitted to the National Radiology Data Registry (NRDR) Dose Index Registry (DIR) with the [employer] (ACR). RADIATION OPTIMIZATION: All CT scans at this facility use at least one of these dose optimization techniques: automated exposure control; mA and/or kV adjustment per patient size (includes targeted exams where dose is matched to clinical indication); or iterative reconstruction.
[2025-03-29] MEDS: Barium Sulfate 2% W/V-Berry Smoothie 450 ML BTL PO (11:31)
[2025-03-29] MEDS: Barium Sulfate 2% W/V-Creamy Vanilla Smoothie 450 ML BTL PO (11:32)
[2025-03-29] MEDS: Omnipaque 350 MG/ML 500 ML BTL-Imaging package IJ (12:27)
[2025-03-29] MEDS: Normal Saline - Diluent 50 ML VIAL IJ (12:29)
[2025-03-29] MEDS: Normal Saline Flush 10 ML SYR IVP (12:29)
== END ==
LOC: DI 00:28
PROVIDERS: PCP Internal Medicine; Visit Provider Nurse Practitioner Family
DX: C22.1 Intrahepatic bile duct carcinoma (principal)
CPT/HCPCS: 74177; 71260

== ENCOUNTER 2025-03-29 18:41 | Emergency (ER) | payer MEDICARE, SELFPAY ==
[2025-03-29 18:51] VITALS: BP 157/76; PULSE 83; RESP 20; TEMP 36.6; O2SAT 93
--- NOTE | 2025-03-29 19:14 | W.ED.GENAD ---
Discharge Plan Disposition Patient Disposition: Home Condition: Stable Discharge Details Clinical Impression: Pulmonary embolism Primary Care Provider: Chacha Erazo ED Provider: Jerald Whitaker Home Meds and New Rx's Prescriptions: New Andrey DVT-PE Treat 30D Start 5 mg (74 tabs) tablets,dose pack 5 mg PO ONCE Qty: 1 0RF Rx Instructions: per package insert directions Continued diphenhydramine HCl [Benadryl] 25 mg capsule 25 mg PO QHS PRN Trimo-Casarez Jelly 0.025-0.01 % gel 1 applic vaginal .COMPLEX Qty: 113.4 4RF Rx Instructions: 1 applic vaginal twice weekly; levothyroxine 100 mcg capsule 100 mcg PO DAILY omeprazole 40 mg capsule,delayed release(DR/EC) 40 mg PO DAILY Qty: 90 3RF Rx Instructions: take one capsule daily mirabegron [Myrbetriq] 25 mg tablet extended release 24 hr 25 mg PO DAILY Patient Comments: TAKE ONE TABLET BY MOUTH EVERY DAY. DO NOT CRUSH OR CHEW. IF NOT EFFECTIVE, CAN INCREASE TO 50MG DAILY Discharge Instructions Additional Instructions: Take the blood thinner as prescribed. Follow-up with your oncologist. You will likely need to take this for longer than a 30-day prescription provided, either your primary care provider or your oncologist can continue the prescription for longer. Return to the emergency department if you feel more ill or have new symptoms such as severe chest pain or difficulty breathing. Stand Alone Forms: Portal Information HPI General Mode of arrival: ambulatory. Date/Time Provider Initiated Documentation: 03/29/25 18:42. Limitations to Documentation: no limitations. Information obtained by: patient. History of Present Illness 79 year old F presents to the emergency department with the chief complaint of Pe on CT earlier, described as mild, Patient started experiencing this day(s) (1) and it has been constant. No relieving factors improve symptom(s), No exacerbating factors reported . Patient notes no other symptoms.. Patient did receive the following treatments prior to arrival, none Related Data Home Medications ?Medication ?Instructions ?Recorded ?Confirmed diphenhydramine HCl 25 mg capsule 25 mg PO QHS PRN 07/05/18 03/29/25 (Benadryl) omeprazole 40 mg capsule,delayed 40 mg PO DAILY #90 tab-caps 09/11/20 03/29/25 release oxyquinoline 0.025 %-sodium lauryl 1 applic vaginal .COMPLEX #113.4 02/01/24 03/29/25 sulfate 0.01 % vaginal gel grams (Trimo-Casarez Jelly) levothyroxine 100 mcg capsule 100 mcg PO DAILY 06/04/24 03/29/25 apixaban 5 mg (74 tabs) tablets in 5 mg PO ONCE #1 pkg 03/29/25 a dose pack (Eliquis DVT-PE Treat 30D Start) mirabegron 25 mg tablet,extended 25 mg PO DAILY 03/29/25 03/29/25 release 24 hr (Myrbetriq) Previous Rx's ?Medication ?Instructions ?Recorded omeprazole 40 mg capsule,delayed 40 mg PO DAILY #90 tab-caps 09/11/20 release oxyquinoline 0.025 %-sodium lauryl 1 applic vaginal .COMPLEX #113.4 02/01/24 sulfate 0.01 % vaginal gel grams (Trimo-Casarez Jelly) apixaban 5 mg (74 tabs) tablets in 5 mg PO ONCE #1 pkg 03/29/25 a dose pack (Eliquis DVT-PE Treat 30 Start) Allergies Allergy/AdvReac Type Severity Reaction Status Date / Time No Known Allergies Allergy Verified 03/29/25 18:54 General Stated Complaint: Recheck FALLON: 3 Review of Systems All systems reviewed & are unremarkable except as noted in HPI and below Constitutional Constitutional: Denies chills, Denies fever(s) and Denies weakness Cardiovascular Cardiovascular: Denies chest pain and Denies dyspnea Respiratory Respiratory: Denies cough and Denies dyspnea Gastrointestinal Gastrointestinal: Denies abdominal pain, Denies nausea and Denies vomiting Neurologic Neurologic: Denies weakness Exam Const General: no acute distress Orientation: alert [facility] Head: normal to inspection Ears: external ears normal General nose exam: external nose normal Mouth: moist mucous membranes Eyes General: appearance normal, both eyes and all related structures Neck Neck: normal visual inspection Resp Effort & Inspection: normal respiratory effort and able to speak in complete sentences Auscultation: clear to auscultation bilaterally Cardio Rate: regular rate Skin General skin exam: no rashes or lesions noted Neuro General: patient alert and patient oriented x3 Extrem General: normal to inspection Psych Mental Status: mental status grossly normal Course Vital Signs Vital signs: Vital Signs Temperature 36.6 C 03/29/25 18:51 Pulse 83 03/29/25 18:51 Respiratory Rate 20 03/29/25 18:51 Blood Pressure 157/76 H 03/29/25 18:51 Pulse Oximetry 93 03/29/25 18:51 Temperature 36.6 C 03/29/25 18:51 Pulse 83 03/29/25 18:51 Respiratory Rate 20 03/29/25 18:51 Blood Pressure 157/76 H 03/29/25 18:51 Blood Pressure Position Sitting 03/29/25 18:51 Pulse Oximetry 93 03/29/25 18:51 Oxygen Delivery Method Room Air 03/29/25 18:51 Oxygen Flow Rate 0 03/29/25 18:51 Medical Decision Making 79-year-old female who is undergoing treatment for cholangiocarcinoma comes in after she had a screening CT earlier today and there was an incidental right lower lobe filling defect consistent with a PE. Patient states she feels well and denies having any difficulty breathing or chest pain. She is ambulating here with no hypoxia and no evidence of difficulty breathing. She denies any chest pain, diaphoresis, leg swelling or calf tenderness. Vital signs are reassuring. She has no swelling of her legs or calf tenderness on exam. Discussed results with her and did offer to do blood work but advised it would unlikely changeover operator and after long discussion shared decision making she would like to defer further testing and just start Eliquis which I feel is reasonable. She will follow-up with oncology and return precautions given. Differential Diagnosis Differential Diagnosis: PE, asymptomatic PE PFSH All Active Problems (Updated 03/29/25 @ 19:19 by Jerald Whitaker MD) Pulmonary embolism (Chronic) History of colon resection (Chronic) [facility] in September due to metastatic lesion in her colon. Inadvertent bladder dome injury at the time of her procedure. 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) [facility] [place] ; solomon-en-x/total left lobectomy: - no metastasis/ negative lymph nodes post-op: C.Difficile infection : chemo + radiation therapy Hypochromic-microcytic anemia (Acute 02/06/16) 02/2021--resolved-hematocrit 43 Hyperlipidemia (Acute) Medical History Primary osteoarthritis of both knees Family history of GI malignancy Family hx-breast malignancy Elevated alkaline phosphatase level (02/06/16) Surgical History History of total abdominal hysterectomy History of varicose vein ligation and stripping Status post carpal tunnel release liver resection (05/06/16) s/p radiation and chemotherapy VEIN STRIPPING Open Carpal Tunnel release B/L Abdominal hysterectomy Repair of inguinal hernia (02/22/17) Family History Mother Personal history of malignant neoplasm LEUKEMIA Father Diabetes Heart disease Sister Personal history of malignant neoplasm COLON Sister Personal history of malignant neoplasm BREAST Sister No problems noted. Sister No problems noted. Sister No problems noted. Brother Diabetes Heart disease Brother No problems noted. Brother No problems noted. Grandfather Personal history of malignant neoplasm COLON Grandfather No problems noted. Grandmother No problems noted. Grandmother Personal history of malignant neoplasm Son No problems noted. Son No problems noted. Other Family history of GI malignancy Family hx-breast malignancy Social History Smoking/Tobacco Use Status: Never Smoking risk assessment performed?: Yes Alcohol Intake: current Alcohol Intake frequency: holidays/special occasions only Drug use: Never Substance use type: does not use Caregiver/Support person: No Household members: spouse Pets and animals: No Current gender identity: female What type of physical activity do you participate in: walking Duration: < 15 minutes/day Frequency: 1-2 times per week Sonam/Congregational: Anabaptism Seatbelt use: always Do you feel safe in your relationship?: Yes
[2025-03-29] MEDS: Apixaban 5 MG TAB 10 MG PO (19:35)
== END 2025-03-29 19:43 | disposition home or self-care (01) ==
PROVIDERS: Emergency Provider Emergency Medicine; PCP Internal Medicine
DX: I26.99 Other pulmonary embolism without acute cor pulmonale (principal)
CPT/HCPCS: 99284; 99283; 74177; 71260